=== PATIENT | female | born 1955 | race Caucasian/White ===

== ENCOUNTER → 2017-03-15 | Outpatient (CLI) | payer BC, OTHER ==
--- NOTE | 2017-03-15 16:43 | WOMENS IMAGING REPORT ---
EXAM DESCRIPTION: BILAT SCREENING MAMMO W/CAD COMPLETED DATE/TIME: 03/15/2017 8:47 am REASON FOR STUDY: SCREENING MAMMO Z12.31 ENCNTR SCREEN MAMMOGRAM FOR MALIGNANT NEOPLASM OF [place] COMPARISON: 2012 TECHNIQUE: Standard craniocaudal and mediolateral oblique views of each breast recorded using digita l acquisition. LIMITATIONS: None. FINDINGS: No masses, calcifications or architectural distortion. No areas of suspicion. Read with the assistance of CAD. .[facility] - R2 Cenova Version 1.3 .[facility] - R2 Cenova Version 1.3 .[facility] - R2 Cenova Version 2.4 .[facility] - R2 Cenova Version 2.4 .[facility] - R2 [employer] Version 9.2 IMPRESSION: NORMAL MAMMOGRAM. BIRADS 1. BREAST DENSITY: b. There are scattered areas of fibroglandular density. BIRAD: 1 NEGATIVE RECOMMENDATION: ROUTINE SCREENING COMMENT: The patient has been notified of the results by letter per SA requirements. Additional no tification policies are in place for contacting patient with suspicious or incomplete findings. Quality ID #[id number]: The [employer] recommends an annual screening mammogram for women aged 40 years or over. This facility utilizes a reminder system to ensure that all patients receive reminder letters, and/or direct phone calls for appointments. This includes reminders for routine scr eening mammograms, diagnostic mammograms, or other Breast Imaging Interventions when appropriate. Th is patient will be placed in the appropriate reminder system. The [employer] (ACR) has developed recommendations for screening MRI of the breast s in certain patient populations, to be used in conjunction with mammography. Breast MRI surveillanc e may be appropriate for women with more than 20% lifetime risk of developing breast cancer as deter mined by genetic testing, significant family history of the disease, or history of mantle radiation f or Hodgkins Disease. ACR Practice Guidelines 2008. TECHNICAL DOCUMENTATION: FINDING NUMBER: (1) ASSESSMENT: (1) JOB ID: [id number] [employer]- All Rights Reserved
== END ==
LOC: WI 08:28
PROVIDERS: ATTEND Family Medicine
DX: Z12.31 Encounter for screening mammogram for malignant neoplasm of breast (principal)
CPT/HCPCS: 77067; G0202

== ENCOUNTER 2018-07-08 13:06 | Emergency (ER) | payer OTHER, BC ==
[2018-07-08] MEDS ORDERED: KETOROLAC TROMETHAMINE 60 MG/2 ML SDV IM ONE (14:28)
[2018-07-08] MEDS ORDERED: LIDOCAINE 5% (700 MG) TRANSDERMAL ADH..PATCH TP ONE (14:28)
[2018-07-08] MEDS ORDERED: DEXAMETHASONE 4 MG TABLET PO ONE (14:28)
--- NOTE | 2018-07-08 14:33 | ER Document Report ---
ED Neck/Back Problem - General Chief Complaint: Low Back Pain Stated Complaint: LOWER BACK PAIN Time Seen by Provider: 07/08/18 14:03 Primary Care Provider: OFELIA JARAMILLO MD [Primary Care Provider] - Follow up in 3-5 days Mode of Arrival: Ambulatory Information source: Patient Notes: 62-year-old female presents to ED for complaint of left lower back pain that goes across the back and down the legs. 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 She states she has had pain in the back before but never this bad. She is alert oriented respirations regular and unlabored speaking in full sentences. She denies any loss control of bowel or bladder, loss of control of lower extremities, saddle anesthesia, or loss of sensation to the lower extremities. She does have normal reflexes to bilateral lower extremities. TRAVEL OUTSIDE OF THE [place] IN LAST 30 DAYS: No - HPI Onset: Other - She has chronic mild back pain but this is different than normal Onset: Chronic Timing: Still present - Mild but this is worse than normal Quality of pain: Sharp Severity: Moderate Pain Level: 3 Context: Bending Recent injury: Possibly Associated symptoms: Like prior neck/back pain - Worse than normal, Radiation to leg, Lower back pain. denies: Constipation, Fever, Incontinence, Motor loss, Numbness/tingling, Radiation to arm, Radiation to chest, Sensory loss, Sweaty, Unable to urinate, Upper back pain Exacerbated by: Movement of trunk, Sitting position Relieved by: Nothing Similar symptoms previously: Yes - Not this bad Recently seen / treated by doctor: No - Related Data Allergies/Adverse Reactions: No Known Allergies Allergy (Verified 07/08/18 13:07) Past Medical History - General Information source: Patient - Social History Smoking Status: Never Smoker Cigarette use (# per day): No Chew tobacco use (# tins/day): No Smoking Education Provided: No Frequency of alcohol use: None Drug Abuse: None Occupation: [employer] Lives with: Family Family History: Reviewed & Not Pertinent Patient has suicidal ideation: No Patient has homicidal ideation: No - Past Medical History Cardiac Medical History: Reports: Hx Hypertension Pulmonary Medical History: Reports: None EENT Medical History: Reports: None Neurological Medical History: Reports: None Endocrine Medical History: Reports: None Renal/ Medical History: Reports: None Malignancy Medical History: Reports: None GI Medical History: Reports: None Musculoskeletal Medical History: Reports None Skin Medical History: Reports None Psychiatric Medical History: Reports: None Traumatic Medical History: Reports: None Infectious Medical History: Reports: None Past Surgical History: Reports: Hx Hysterectomy - Immunizations Immunizations up to date: Yes Hx Diphtheria, Pertussis, Tetanus Vaccination: No - not sure Review of Systems - Review of Systems Constitutional: No symptoms reported EENT: No symptoms reported Cardiovascular: No symptoms reported Respiratory: No symptoms reported Gastrointestinal: No symptoms reported Genitourinary: No symptoms reported Female Genitourinary: No symptoms reported Musculoskeletal: Back pain, Muscle pain, Muscle stiffness Skin: No symptoms reported Hematologic/Lymphatic: No symptoms reported Neurological/Psychological: No symptoms reported Physical Exam - Vital signs Vitals: Temp Pulse Resp BP Pulse Ox 99.0 F 78 16 135/74 H 99 07/08/18 13:11 07/08/18 13:11 07/08/18 13:11 07/08/18 13:11 07/08/18 13:11 Interpretation: Normal - General General appearance: Appears well, Alert - HEENT Head: Normocephalic, Atraumatic Eyes: Normal Pupils: PERRL - Respiratory Respiratory status: No respiratory distress Chest status: Nontender Breath sounds: Normal Chest palpation: Normal - Cardiovascular Rhythm: Regular Heart sounds: Normal auscultation Murmur: No - Abdominal Inspection: Normal Distension: No distension Bowel sounds: Normal Tenderness: Nontender Organomegaly: No organomegaly - Back Back: Normal, Tender, Vertebra tenderness - lumbar. No: Deformity/step-off, CVA tenderness, Scoliosis Notes: No signs or symptoms of cauda equina, no loss of sensation to lower extremities no saddle anesthesia no loss control of bowel bladder no loss control of lower extremities. - Extremities General upper extremity: Normal inspection, Nontender, Normal color, Normal ROM, Normal temperature General lower extremity: Normal inspection, Nontender, Normal color, Normal ROM, Normal temperature, Normal weight bearing. No: Roya's sign - Neurological Neuro grossly intact: Yes Cognition: Normal Orientation: AAOx4 [place] Coma Scale Eye Opening: Spontaneous Pipe Coma Scale Verbal: Oriented Pipe Coma Scale Motor: Obeys Commands [place] Coma Scale Total: 15 Speech: Normal Motor strength normal: LUE, RUE, LLE, RLE Sensory: Normal - Psychological Associated symptoms: Normal affect, Normal mood - Skin Skin Temperature: Warm Skin Moisture: Dry Skin Color: Normal Course - Re-evaluation Re-evalutation: 07/08/18 16:41 Test x-ray with patient and written report of x-ray given to patient. Patient was instructed to follow-up with primary doctor patient was given prescriptions from naproxen and Lidoderm patches. She was instructed on exercises warm packs cold packs. Patient verbalized understanding and agreement with treatment plan. After performing a Medical Screening Examination, I estimate there is LOW risk for EXPANDING OR RUPTURED ABDOMINAL AORTIC ANEURYSM, CAUDA EQUINA SYNDROME, EPIDURAL MASS LESION, or HERNIATED DISK CAUSING SEVERE SPINAL STENOSIS, thus I consider the discharge disposition reasonable. I have reevaluated this patient multiple times and no significant life threatening changes are noted. The patient and I have discussed the diagnosis and risks, and we agree with discharging home and close follow-up. We also discussed returning to the Emergency Department immediately if new or worsening symptoms occur with the understanding that symptoms and presentations can change. We have discussed the symptoms which are most concerning (e.g., saddle anesthesia, urinary or bowel incontinence or retention, changing or worsening pain) that necessitate immediate return. - Vital Signs Vital signs: Temp Pulse Resp BP Pulse Ox 97.6 F 65 14 148/95 H 97 07/08/18 15:48 07/08/18 15:48 07/08/18 15:48 07/08/18 15:48 07/08/18 15:48 - Diagnostic Test Radiology reviewed: Image reviewed, Reports reviewed Discharge - Discharge Clinical Impression: Degenerative disc disease, lumbar Low back pain Qualifiers: Chronicity: acute Back pain laterality: bilateral Sciatica presence: with sciatica Sciatica laterality: bilateral sciatica Qualified Code(s): M54.42 - Lumbago with sciatica, left side Condition: Stable Disposition: HOME, SELF-CARE Additional Instructions: LOW BACK PAIN: Three out of every four people will have an episode of disabling back pain during their lifetime. Most commonly the pain is due to straining of the muscles and ligaments in the low back. Usual treatment includes: (1) Rest on a firm surface. Avoid lying on your stomach. (2) Ice pack the painful area. After a few days, gentle heat may be used intermittently to relax the area, or ice packs can be continued. (3) Medication may be needed -- muscle relaxers and antiinflammatory medicines are commonly used. (4) As the back improves, exercises are prescribed to strengthen the back and abdominal muscles. Your doctor will advise you on the proper care for your back at each stage in your recovery. You may be better in a few days -- or healing may take several weeks. If new symptoms of a "herniated disc" (radiation of pain, numbness, or tingling down the back of the leg or weakness in the leg) occur, you should be re-examined. Further testing may be necessary. Toradol Injection You have been given an injection of ketorolac tromethamine (Toradol). This is an excellent, safe drug for pain control. It also has potent antiinflammatory action. You should have significant pain relief within about one hour. Toradol is not addicting and is non-sedating. It does not interfere with driving or work. Call or return if you develop itching, hives, shortness of breath, or rash. STEROID MEDICATION: You have been given a medicine of the cortisone/steroid class. This medication is used to control inflammation or allergy. It is usually only given for a short period of time, until the acute process subsides. There are usually no side effects from short-term use of cortisone-like medications. Some persons feel an increased sense of well-being and are not sleepy at bedtime. Long-term use of cortisone medications is best avoided, unle ss required for a severe condition. If your condition does not remit, or relapses after the course of corticosteroid medication, you should consult your physician. Stretching Exercises for the Back The physician has recommended that you begin stretching exercises for your back. These are often used even while the back is painful. However, you should notify the physician if the activities seem to increase your pain. PELVIC TILT: Lie flat on your back with knees bent. Tighten your stomach and buttock muscles so it flattens your lower back against the floor. Hold 10 seconds. Repeat 10 times, twice daily. KNEE RAISE: Lying on the back with knees bent, raise one knee to your chest, then the other. Hold both knees against the chest 10 seconds, then lower one knee at a time. Repeat 10 times, twice daily. PARTIAL TRUNK RAISE: Lie face down, arms at your sides. Keeping your waist on the floor, use your arms raise your chest up. Support yourself on your elbows for 30 seconds. Repeat twice daily, increasing the time to two minutes as you recover. ICE PACKS: Apply ice packs frequently against the painful area. Many different schedules are recommended, such as "20 minutes on, 20 minutes off" or "one hour ice, two hours rest." If you need to work, you may need to go longer between ice treatments. You should plan to have the area ice packed AT LEAST one fourth of the time. The ice should be applied over the wrap, tape, or splint, or over a layer of cloth -- not directly against the skin. Some ice bags have a built-in cloth and can be put directly on the skin. WARM PACKS: After approximately two days, apply gentle heat (such as a heating pad or hot water bottle) for about 20 to 30 minutes about every two hours -- at least four times daily. Warmth and elevation will help you make a more rapid recovery, and will ease the pain considerably. Do not use HOT heat, and never apply heat for longer than 30 minutes. The continuous heat can invisibly damage skin and muscles -- even when no burn is seen on the surface. Damaged muscles can make you MORE sore. FOLLOW-UP CARE: If you have been referred to a physician for follow-up care, call the physicians office for an appointment as you were instructed or within the next two days. If you experience worsening or a significant change in your symptoms, notify the physician immediately or return to the Emergency Department at any time for re-evaluation. Prescriptions: Lidocaine [Lidoderm 5% (700 mg) Transdermal Patch] 1 patch TP DAILY #30 adh..patch Naproxen 500 mg PO BIDP PRN #20 tablet PRN Reason: Forms: Elevated Blood Pressure, Return to Work Referrals: OFELIA JARAMILLO MD [Primary Care Provider] - Follow up in 3-5 days
--- NOTE | 2018-07-08 15:31 | RADIOLOGY REPORT (SQ) ---
EXAM DESCRIPTION: L SPINE WHOLE COMPLETED DATE/TIME: 07/08/2018 3:21 pm REASON FOR STUDY: low back pain radiating to leg COMPARISON: None. NUMBER OF VIEWS: Five views including obliques. TECHNIQUE: AP, lateral, oblique, and sacral radiographic images acquired of the lumbar spine. LIMITATIONS: None. FINDINGS: MINERALIZATION: Normal. SEGMENTATION: Normal. No transitional anatomy. ALIGNMENT: Normal. VERTEBRAE: Maintained height. No fracture or worrisome bone lesion. DISCS: Scattered osteophytes. No focal disc space narrowing. POSTERIOR ELEMENTS: Pedicles and facets are intact. No pars defect or posterior arch defects. HARDWARE: None in the spine. PARASPINAL SOFT TISSUES: Normal. PELVIS: Intact as visualized. No fractures or worrisome bone lesions. SI joints intact. OTHER: No other significant finding. IMPRESSION: Mild degenerative changes. TECHNICAL DOCUMENTATION: JOB ID: [id number] [employer]- All Rights Reserved Reading location - IP/workstation name: [email or web address]
[2018-07-08 15:51] VITALS: BP 148/95
== END 2018-07-08 16:40 | disposition home or self-care (01) ==
LOC: ER 13:06
DX: M51.16 Intervertebral disc disorders with radiculopathy, lumbar region (principal); I10 Essential (primary) hypertension
CPT/HCPCS: 99283; 96372; 72110; J1885

== ENCOUNTER → 2018-08-22 | Outpatient (CLI) | payer BC ==
--- NOTE | 2018-08-22 18:01 | RADIOLOGY REPORT (SQ) ---
EXAM DESCRIPTION: U/S THYROID/SFT TISS HD NECK COMPLETED DATE/TIME: 08/22/2018 5:54 pm REASON FOR STUDY: E04.9 NONTOXIC GOITER, UNSPECIFIED E04.9 NONTOXIC GOITER, UNSPECIFIED COMPARISON: None. TECHNIQUE: Dynamic and static ta-scale images acquired of the thyroid gland. Selected additional c olor/power Doppler images recorded. All images stored to PACS. LIMITATIONS: None. FINDINGS: RIGHT LOBE: Normal size, 4.5 cm. Homogeneous echotexture. No cystic or solid masses. LEFT LOBE: Normal size, 4.3 cm. Homogeneous echotexture. No cystic or solid masses. ISTHMUS: Normal size, 4.4 mm. Homogeneous echotexture. No cystic or solid masses. OTHER: No other significant finding. IMPRESSION: NORMAL THYROID ULTRASOUND. TECHNICAL DOCUMENTATION: JOB ID: [id number] [employer]- All Rights Reserved Reading location - IP/workstation name: [email or web address]
== END ==
LOC: RAD 16:39
PROVIDERS: ATTEND Internal Medicine Geriatric Medicine
DX: E04.9 Nontoxic goiter, unspecified (principal)
CPT/HCPCS: 76536

== ENCOUNTER → 2018-10-09 | Outpatient (CLI) | payer BC ==
--- NOTE | 2018-10-09 11:46 | WOMENS IMAGING REPORT ---
EXAM DESCRIPTION: BILAT SCREENING MAMMO W/CAD COMPLETED DATE/TIME: 10/09/2018 11:31 am REASON FOR STUDY: ROUTINE BILATERAL SCREENING;Z12.31 Z12.31 ENCNTR SCREEN MAMMOGRAM FOR MALIGNANT N EOPLASM OF [place] COMPARISON: 2012, 2016 TECHNIQUE: Standard craniocaudal and mediolateral oblique views of each breast recorded using [place] l acquisition. LIMITATIONS: None. FINDINGS: No masses, calcifications or architectural distortion. No areas of suspicion. Read with the assistance of CAD. .[facility] - R2 Mover Version 9.2 IMPRESSION: NORMAL MAMMOGRAM. BIRADS 1. BREAST DENSITY: b. There are scattered areas of fibroglandular density. BIRAD: 1 NEGATIVE RECOMMENDATION: ROUTINE SCREENING COMMENT: The patient has been notified of the results by letter per MQSA requirements. Additional no tification policies are in place for contacting patient with suspicious or incomplete findings. Quality ID #[id number]: The [employer] [employer] recommends an annual screening mammogram for women aged 40 years or over. This facility utilizes a reminder system to ensure that all patients receive reminder letters, and/or direct phone calls for appointments. This includes reminders for routine scr eening mammograms, diagnostic mammograms, or other Breast Imaging Interventions when appropriate. Th is patient will be placed in the appropriate reminder system. TECHNICAL DOCUMENTATION: FINDING NUMBER: (1) ASSESSMENT: (1) JOB ID: [id number] [employer]- All Rights Reserved Reading location - IP/workstation name: [email or web address]
== END ==
LOC: WI 11:09
PROVIDERS: ATTEND Internal Medicine Geriatric Medicine
DX: Z12.31 Encounter for screening mammogram for malignant neoplasm of breast (principal)
CPT/HCPCS: 77067

== ENCOUNTER 2019-05-26 09:15 | Emergency (ER) | payer OTHER, BC ==
[2019-05-26] MEDS ORDERED: LIDOCAINE 5% (700 MG) TRANSDERMAL ADH..PATCH TP ONE (11:16)
[2019-05-26] MEDS ORDERED: ACETAMINOPHEN 325 MG TABLET PO ONE (11:16)
--- NOTE | 2019-05-26 11:23 | ER Document Report ---
HPI - HPI Patient complains to provider of: Back pain Time Seen by Provider: 05/26/19 11:01 Onset: This morning Onset/Duration: Gradual Quality of pain: Achy Pain Level: 5 Context: Patient states she has a history of chronic neck and low back pain. Patient had been out of work for a year due to arthritis and chronic back pain. Patient recently started back to work yesterday. Patient is not supposed to lift more than 10 or 20 pounds. Patient states that a patient was unable to stand up unassisted and patient attempted to help patient ambulate. Patient states that she ended up lifting probably closer to 50 pounds. Patient states she did not have pain at that time although when she woke up this morning she developed pain to the upper back and low back area. Patient states that she has had pain like this in the past. Patient denies any fever. Patient denies any urinary retention or incontinence. Patient also complains of sore throat symptoms. Associated Symptoms: Other - Upper and lower back pain. denies: Fever, Headache, Nausea, Vomiting Exacerbated by: Movement Relieved by: Denies Similar symptoms previously: Yes Recently seen / treated by doctor: No - ROS ROS below otherwise negative: Yes Systems Reviewed and Negative: Yes All other systems reviewed and negative - EENT EENT: REPORTS: Sore Throat - GASTROINTESTINAL Gastrointestinal: DENIES: Nausea, Patient vomiting - REPRODUCTIVE Reproductive: DENIES: : - MUSCULOSKELETAL Musculoskeletal: REPORTS: Back Pain, Neck Pain - Lateral neck pain. 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 Family History: Reviewed & Not Pertinent Patient has suicidal ideation: No Patient has homicidal ideation: No - Past Medical History Cardiac Medical History: Reports: Hx Hypertension Renal/ Medical History: Denies: Hx Peritoneal Dialysis Past Surgical History: Reports: Hx Hysterectomy, Hx Orthopedic Surgery - Immunizations Immunizations up to date: Yes Hx Diphtheria, Pertussis, Tetanus Vaccination: No - not sure Vertical Provider Document - CONSTITUTIONAL Agree With Documented VS: Yes Exam Limitations: No Limitations General Appearance: WD/WN, No Apparent Distress - INFECTION CONTROL TRAVEL OUTSIDE OF THE [place] IN LAST 30 DAYS: No - HEENT HEENT: Atraumatic, Normocephalic - NECK Neck: Supple. negative: Lymphadenopathy-Left, Lymphadenopathy-Right Notes: Posterior cervical paraspinal tenderness, no meningismus - RESPIRATORY Respiratory: Breath Sounds Normal, No Respiratory Distress, Chest Non-Tender. negative: Rales, Rhonchi, Wheezing - CARDIOVASCULAR Cardiovascular: Regular Rate, Regular Rhythm Pulses: Normal: Radial - BACK Back: Abnormal Inspection - Lumbar paraspinal tenderness. negative: CVA Tender ness-Right, CVA Tenderness-Left - MUSCULOSKELETAL/EXTREMETIES Musculoskeletal/Extremeties: DOROTEO HORVATH - NEURO Level of Consciousness: Awake, Alert, Appropriate Motor/Sensory: No Motor Deficit, No Sensory Deficit Notes: No saddle anesthesia, normal gait, no foot drop - DERM Integumentary: Warm, Dry, No Rash Course - Re-evaluation Re-evalutation: 05/26/19 12:32 Patient's rapid strep test negative at this time. Will treat symptomatically for her tension headache symptoms and trapezius muscle tenderness. Patient also with chronic low back pain flareup. The patient presents with low back pain without signs of spinal cord compression, cauda equina syndrome, infection, aneurysm, or other serious etiology. The patient is neurologically intact. Given the extremely risk of these diagnoses further testing and evaluation for these possibilities does not appear to be indicated at this time. Patient has been instructed to return if the symptoms worsen or change in any way. - Vital Signs Vital signs: Temp Pulse Resp BP Pulse Ox 98.4 F 72 16 140/81 H 99 05/26/19 09:28 05/26/19 09:19 05/26/19 09:28 05/26/19 09:19 05/26/19 09:28 - Laboratory Laboratory results interpreted by me: 05/26/19 12:32 Labs- Entire Visit 05/26/19 11:21 Group A Strep Rapid NEGATIVE Discharge - Discharge Clinical Impression: Tension headache Low back pain Qualifiers: Chronicity: unspecified Back pain laterality: bilateral Sciatica presence: without sciatica Qualified Code(s): M54.5 - Low back pain Trapezius muscle strain Qualifiers: Encounter type: initial encounter Laterality: unspecified laterality Qualified Code(s): S46.819A - Strain of other muscles, fascia and tendons at shoulder and upper arm level, unspecified arm, initial encounter Condition: Stable Disposition: HOME, SELF-CARE Instructions: Ice Packs ([facility]), Low Back Pain ([facility]), Muscle Relaxers ([facility]), Muscle Strain ([facility]), Tension Headache ([facility]), Warm Packs ([facility]) Additional Instructions: Return immediately for any new or worsening symptoms Followup with your primary care provider, call tomorrow to make a followup appointment No heavy lifting Prescriptions: Butalb/Acetaminophen/Caffeine [Fioricet (50-325-40 mg) Tablet] 1 - 2 tab PO Q4H PRN #12 each PRN Reason: Cyclobenzaprine HCl [Flexeril 10 Mg Tablet] 10 mg PO TID #15 tablet Lidocaine [Lidoderm 5% (700 mg) Transdermal Patch] 1 patch TP DAILY PRN #10 adh..patch PRN Reason: Forms: Return to Work Referrals: VENESSA REGALADO MD [Primary Care Provider] - Follow up in 3-5 days
[2019-05-26 12:47] VITALS: BP 138/78
== END 2019-05-26 12:45 | disposition home or self-care (01) ==
LOC: ER 09:15
DX: G44.209 Tension-type headache, unspecified, not intractable (principal); S46.819A Strain of other muscles, fascia and tendons at shoulder and upper arm level, unspecified arm, initial encounter; X58.XXXA Exposure to other specified factors, initial encounter; Y99.0 Civilian activity done for income or pay; G89.29 Other chronic pain; M54.5 Low back pain; M54.2 Cervicalgia
CPT/HCPCS: 87070; 87880; 99283

== ENCOUNTER 2019-05-27 09:18 | Emergency (ER) | payer BC, OTHER ==
[2019-05-27 09:29] VITALS: BP 146/92
[2019-05-27] MEDS ORDERED: ALBUTEROL SULFATE HFA (90 MCG/PUFF) 8 GM MDI (1 MDI/ER DISP) IH ONE (10:12)
--- NOTE | 2019-05-27 10:19 | ER Document Report ---
HPI - HPI Time Seen by Provider: 05/27/19 10:01 Pain Level: Denies Context: 63-year-old female with hypertension presents to the emergency department with chief complaint of persistent sore throat and cold-like symptoms. Patient was seen here yesterday for back pain and a sore throat and had a negative rapid strep. Patient states that her symptoms have been persistent, she has cough, denies fever, complains of runny nose, and denies any ear pain. - EENT EENT: REPORTS: Sore Throat - RESPIRATORY Respiratory: REPORTS: Coughing - REPRODUCTIVE Reproductive: DENIES: : Past Medical History - Social History Smoking Status: Never Smoker Chew tobacco use (# tins/day): No Frequency of alcohol use: None Drug Abuse: None Family History: Reviewed & Not Pertinent Patient has suicidal ideation: No Patient has homicidal ideation: No - Past Medical History Cardiac Medical History: Reports: Hx Hypertension Renal/ Medical History: Denies: Hx Peritoneal Dialysis Past Surgical History: Reports: Hx Hysterectomy, Hx Orthopedic Surgery - Immunizations Immunizations up to date: Yes Hx Diphtheria, Pertussis, Tetanus Vaccination: No - not sure Vertical Provider Document - CONSTITUTIONAL Notes: PHYSICAL EXAMINATION: Reviewed vital signs and charting by RN GENERAL: Alert, interacts well. No acute distress. HEAD: Normocephalic, atraumatic. EYES: Pupils equal and round. Extraocular movements intact. ENT: Oral mucosa moist, tongue midline. NECK: Full range of motion. Trachea midline. LUNGS: End expiratory wheezing in all meadows HEART: Regular rate and rhythm. No murmur ABDOMEN: soft, non-tender. No distention. Bowel sounds present EXTREMITIES: Moves all 4 extremities spontaneously. No edema, No cyanosis. PSYCH: Normal affect, normal mood. SKIN: Warm, dry, normal turgor. No rashes or lesions noted. - INFECTION CONTROL TRAVEL OUTSIDE OF THE [place] IN LAST 30 DAYS: No Course - Re-evaluation Re-evalutation: 05/27/19 10:19 Well-appearing in no acute distress. I did hear end expiratory wheezing and I am going to give patient an albuterol inhaler. Patient does have fluticasone intranasal at home and I instructed her to do 2 puffs each nostril daily. Presentation is most consistent with a viral upper respiratory infection. Patient is overall well appearance, vitals within normal limits, well-hydrated. Patient denies any headache, neck pain, and has no evidence of meningismus on examination. Lungs are clear bilaterally. No evidence of respiratory distress. Based on clinical exam and history, I do not suspect an acute pneumonia, meningitis, strep pharyngitis, or an acute encephalitis. No laboratory or imaging testing is indicated at this time. Will discharge patient with return precautions and followup recommendations. They are in agreement this plan have verbalized understanding return precautions. - Vital Signs Vital signs: Temp Pulse Resp BP Pulse Ox 99.3 F 80 16 146/92 H 96 05/27/19 09:55 05/27/19 09:28 05/27/19 09:55 05/27/19 09:28 05/27/19 09:55 Discharge - Discharge Clinical Impression: Viral upper respiratory infection, Cough, Wheezing, Sore throat Condition: Good Disposition: HOME, SELF-CARE Additional Instructions: You were seen in the emergency department today for a viral upper respiratory infection. I also heard some end expiratory wheezing when listening to your lungs. I have given you an albuterol inhaler and a prescription for a spacer. Place the inhaler on the end of the spacer then placed the spacer to your mouth, start gently breathing and slowly and as you are breathing and take 2 puffs of the albuterol inhaler. Continue to take a full breath and then hold it for at least 10 seconds and gently exhale. For your runny nose you can get saline nasal spray and place 2 squirts in each nose and then gently blow your nose for relief. Also, I have given you a prescription for something called Nasonex which is a gentle steroid that can help as well. 1-2 squirts in each nostril daily. If you buy any [id number] cough and cold medicines please avoid Sudafed and also anything that has dextromethorphan as an ingredient as it can increase your blood pressure. Please return to the emergency department if your symptoms do not improve in the next 7 to 10 days, you develop high fever and acute weakness, you pass out, you have intractable nausea or vomiting, profuse diarrhea, or any other concerning symptoms. Prescriptions: Inhaler, Assist Devices [Aerochamber Mini] 1 each MC ASDIR PRN #1 spacer PRN Reason: Referrals: VENESSA REGALADO MD [Primary Care Provider] - Follow up as needed
== END 2019-05-27 10:21 | disposition home or self-care (01) ==
LOC: ER 09:18
DX: J06.9 Acute upper respiratory infection, unspecified (principal); B97.89 Other viral agents as the cause of diseases classified elsewhere; J02.9 Acute pharyngitis, unspecified; R05 Cough; I10 Essential (primary) hypertension; R06.2 Wheezing
CPT/HCPCS: 99282; J3490

== ENCOUNTER 2019-08-28 03:45 | Emergency (ER) | payer OTHER, BC ==
[2019-08-28] MEDS ORDERED: PREDNISONE 20 MG TABLET PO ONE (04:11)
[2019-08-28] MEDS ORDERED: NAPROXEN 250 MG TABLET PO ONE (04:12)
--- NOTE | 2019-08-28 04:14 | ER Document Report ---
ED Hand/Wrist Injury - General Chief Complaint: Wrist Pain Stated Complaint: RIGHT ARM INJURY Time Seen by Provider: 08/28/19 04:02 Primary Care Provider: VENESSA REGALADO MD [Primary Care Provider] - Follow up as needed Mode of Arrival: Ambulatory Information source: Patient Notes: 63-year-old woman presents to the emergency department with a history of injury to her right wrist and forearm while pulling tiles from a washing machine tonight. States that she became excited when the washing machine began to shake and rapidly pulled a wet towels from the machine. Later she developed a throbbing pain in the right forearm/wrist and denies other injury. She had taken a Tylenol for pain earlier. She denies diabetes mellitus, allergies to medications or direct trauma. TRAVEL OUTSIDE OF THE [place] IN LAST 30 DAYS: No - Related Data Allergies/Adverse Reactions: No Known Allergies Allergy (Verified 05/27/19 09:55) Past Medical History - General Information source: Patient - Social History Smoking Status: Unknown if Ever Smoked Family History: Reviewed & Not Pertinent - Past Medical History Cardiac Medical History: Reports: Hx Hypertension Renal/ Medical History: Denies: Hx Peritoneal Dialysis Past Surgical History: Reports: Hx Hysterectomy, Hx Orthopedic Surgery - Immunizations Immunizations up to date: Yes Hx Diphtheria, Pertussis, Tetanus Vaccination: No - not sure Review of Systems - Review of Systems Notes: Constitutional: Negative for fever. HENT: Negative for sore throat. Eyes: Negative for visual changes. Cardiovascular: Negative for chest pain. Respiratory: Negative for shortness of breath. Gastrointestinal: Negative for abdominal pain, vomiting or diarrhea. Genitourinary: Negative for dysuria. Musculoskeletal: + Right wrist swelling and tenderness, Skin: Negative for rash. Neurological: Negative for headaches, weakness or numbness. 10 point ROS negative except as marked above and in HPI. Physical Exam - Vital signs Vitals: Temp Pulse Resp BP Pulse Ox 98.5 F 73 20 159/80 H 93 08/28/19 04:00 08/28/19 04:00 08/28/19 04:00 08/28/19 04:00 08/28/19 04:00 - Notes Notes: PHYSICAL EXAMINATION: Physical Exam: General: Well-nourished well-developed 63-year-old woman in no acute distress HEENT: NC/AT, pupils equal round and reactive to light, MM moist,nares clear, oropharynx clear, airway patent Neck: supple, no adenopathy, no masses. Good range of motion Lungs: clear, no wheezing, no rales no rhonchi CVS: Regular rate and rhythm no murmur gallop or rub Abdomen: Soft, active, nontender, no masses, no hepatosplenomegaly Ext: Tenderness in the right lateral forearm dorsal aspect greater than volar, no obvious deformity, neurovascular intact. Patient moves her fingers without difficulty. Neuro: Alert and responsive, moving all 4 extremities on command, cranial nerves intact, no focal findings Skin: Intact no open lesions, no rash PSYCH: Normal mood, normal affect. Course - Re-evaluation Re-evalutation: 08/28/19 04:16 Patient is given a dose of prednisone and Naprosyn, x-ray of the wrist is performed, x-ray essentially normal, a cock-up splint is applied to the right wrist and I have explained to the patient that she has a sprain which will improve with anti-inflammatory medications and cold application 08/28/19 04:51 X-ray right wrist, no bony abnormalities noted, discussed the plan with the patient and she is in agreement with cock-up splint and anti-inflammatory medications. She will follow-up with her primary physician as needed. - Vital Signs Vital signs: Temp Pulse Resp BP Pulse Ox 98.6 F 70 18 140/82 H 96 08/28/19 05:13 08/28/19 05:13 08/28/19 05:13 08/28/19 05:13 08/28/19 05:13 - Diagnostic Test Radiology reviewed: Image reviewed, Reports reviewed - X-ray right wrist: No fracture, no acute bony changes. Procedures - Immobilization Right Wrist Time completed: 04:55 Pre-Proc Neuro Vasc Exam: Normal Immobilizer type: Cock-up Performed by: RN, Other Post-Proc Neuro Vasc Exam: Normal Alignment checked and good: Yes - Wrist splint adequately placed. Discharge - Discharge Clinical Impression: Sprain of wrist, right Qualifiers: Encounter type: initial encounter Qualified Code(s): S63.501A - Unspecified sprain of right wrist, initial encounter Condition: Good Disposition: HOME, SELF-CARE Instructions: Wrist Sprain ([facility]) Additional Instructions: You are diagnosed with a sprain of the right wrist in the emergency department tonight. Please wear the splint for comfort, take Naprosyn as prescribed, cold compresses to the area of pain. Please follow-up with your doctor as needed. You may return to the emergency department if your symptoms are worsening or if you have other concerns. HOME CARE INSTRUCTIONS & INFORMATION: Thank you for choosing us for your medical needs. We hope you're satisfied with the care you received. After you leave, you must properly care for your problem and, at the same time, observe its progress. Any condition can change. Some illnesses can change rapidly over hours or days. If your condition worsens, return to the Emergency Department or see your physician promptly. ABOUT YOUR X-RAYS AND EKG'S: If you had an EKG or X-rays taken, they have been read by the Emergency Physician. The X-rays and EKG's will also be read by a Radiologist or [facility]er within 24 hours. If discrepancies are noted, you will be notified by telephone. Please be certain the ED has a correct telephone number & address where you can be reached. Also, realize that some fractures or abnormalities do not show up on initial X-rays. If your symptoms continue, see your physician. ABOUT YOUR LABORATORY TEST: If you had laboratory tests, the results have been reviewed by the Emergency Physician. Some test results (for example cultures) may not be available for several days. You will be contacted if any test result shows you need additional treatment. Please be certain the ED has a correct telephone number and address where you can be reached. ABOUT YOUR MEDICATIONS: You will receive instructions on how to take your medicine on the prescription label you receive. Additional information may be provided by the Pharmacy. If you have questions afterwards, call the ED for clarification or further instructions. Some prescribed medications may cause drowsiness. Do not perform tasks such as driving a car or operating machinery without consulting your Pharmacist. If you feel you need a refill of pain medication, your condition will need re-evaluation. Please do not call for a refill of any medication. ABOUT YOUR SIGNATURE: Signature of this document acknowledges to followin. Understanding that you received emergency treatment and that you may be released before al medical problems are known or treated. Please be certain the ED has a correct phone number & address where you can be reached. 2. Acknowledgement that you will arrange for follow-up care as recommended. 3. Authorization for the Emergency Physician to provide information to your follow-up Physician in order to maximize your care. AT ANY TIME, IF YOUR SYMPTOMS CHANGE SIGNIFICANTLY OR WORSEN OR YOU DEVELOP NEW SYMPTOMS, RETURN TO THE EMERGENCY DEPARTMENT IMMEDIATELY FOR RE-EVALUATION. OUR GOAL IS TO PROVIDE EXCELLENT MEDICAL CARE! WE HOPE THAT WE HAVE MET YOUR EXPECTATIONS DURING YOUR EMERGENCY DEPARTMENT VISIT AND THAT YOU FEEL YOU HAVE RECEIVED EXCELLENT CARE! Prescriptions: Naproxen [Naprosyn] 500 mg PO BID #20 tablet Referrals: VENESSA REGALADO MD [Primary Care Provider] - Follow up as needed
--- NOTE | 2019-08-28 04:57 | RADIOLOGY REPORT (SQ) ---
EXAM DESCRIPTION: XR WRIST 3 OR MORE VIEWS COMPLETED DATE/TME: 08/28/2019 04:06 CLINICAL HISTORY: 63 years, Female, Injury, pain COMPARISON: None. NUMBER OF VIEWS: Three TECHNIQUE: Views of the right wrist LIMITATIONS: None. FINDINGS: There is no acute fracture or dislocation. No large soft tissue swelling. No radiopaque foreign body. IMPRESSION: No acute fracture or dislocation copyright 2010 [employer]- All Rights Reserved
[2019-08-28 05:15] VITALS: BP 140/82
== END 2019-08-28 05:13 | disposition home or self-care (01) ==
LOC: ER 03:45
PROC: 2W3CX1Z Immobilization of Right Lower Arm using Splint (ICD-10-PCS; principal; 2019-08-28)
DX: S63.501A Unspecified sprain of right wrist, initial encounter (principal); M25.531 Pain in right wrist; M79.89 Other specified soft tissue disorders; X50.3XXA Overexertion from repetitive movements, initial encounter; I10 Essential (primary) hypertension
CPT/HCPCS: 99283; 73110; 29125; J7512

== ENCOUNTER 2019-08-31 03:39 | Emergency (ER) | payer OTHER, BC ==
[2019-08-31] MEDS ORDERED: HYDROCODONE/ACETAMINOPHEN 5-325 MG (6 TAB/ER DISP) PO PRN (05:03)
[2019-08-31 05:29] VITALS: BP 180/88
--- NOTE | 2019-08-31 20:17 | ER Document Report ---
Entered by LETTY CASAS SCRIBE 08/31/19 0452 Acting as scribe for:RUPESH WINSTON IV, MD ED Hand/Wrist Injury - General Chief Complaint: Hand Pain Stated Complaint: RIGHT HAND PAIN Time Seen by Provider: 08/31/19 04:50 Primary Care Provider: VENESSA REGALADO MD [Primary Care Provider] - Follow up as needed Mode of Arrival: Ambulatory Information source: Patient Notes: This 63 year old female patient presents to the ED today with complaints of left forearm and wrist pain that woke her up this morning. Patient states that she was pulling out "heavyweight" towels from a dryer and hurt both of her wrists x3 days ago. Patient was seen here on the date of the incident and was diagnosed with a right wrist sprain and prescribed Naproxen. Patient reports that her left wrist started bothering her this morning and that she took a Naproxen around 0100 without relief. Patient noted to have an Rafael wrap to her left hand. TRAVEL OUTSIDE OF THE [place] IN LAST 30 DAYS: No - Related Data Allergies/Adverse Reactions: No Known Allergies Allergy (Verified 05/27/19 09:55) Past Medical History - General Information source: Patient, [facility] Records - Social History Smoking Status: Unknown if Ever Smoked Cigarette use (# per day): No Chew tobacco use (# tins/day): No Smoking Education Provided: No Family History: Reviewed & Not Pertinent Patient has suicidal ideation: No Patient has homicidal ideation: No - Past Medical History Cardiac Medical History: Reports: Hx Hypertension Past Surgical History: Reports: Hx Hysterectomy, Hx Orthopedic Surgery - Immunizations Immunizations up to date: Yes Hx Diphtheria, Pertussis, Tetanus Vaccination: No - not sure Review of Systems - Review of Systems Constitutional: No symptoms reported EENT: No symptoms reported Cardiovascular: No symptoms reported Respiratory: No symptoms reported Gastrointestinal: No symptoms reported Genitourinary: No symptoms reported Female Genitourinary: No symptoms reported Musculoskeletal: See HPI, Other - Left forearm/wrist pain Skin: No symptoms reported Hematologic/Lymphatic: No symptoms reported Neurological/Psychological: No symptoms reported -: Yes All other systems reviewed and negative Physical Exam - Vital signs Vitals: Temp Pulse Resp BP Pulse Ox 98.7 F 68 22 H 186/95 H 96 08/31/19 04:01 08/31/19 04:01 08/31/19 04:01 08/31/19 04:01 08/31/19 04:01 - General General appearance: Alert - HEENT Head: Normocephalic, Atraumatic Eyes: Normal Pupils: PERRL - Respiratory Respiratory status: No respiratory distress Chest status: Nontender Breath sounds: Normal Chest palpation: Normal - Cardiovascular Rhythm: Regular Heart sounds: Normal auscultation Murmur: No Friction rub: No Gallop: None auscultated - Abdominal Inspection: Normal Distension: No distension Bowel sounds: Normal Tenderness: Nontender - Abdomen soft Organomegaly: No organomegaly - Back Back: Normal, Nontender - Extremities General upper extremity: Other - Intact active ROM. No deformity, step-off, or crepitus. General lower extremity: Normal inspection Forearm: Tender - Tender to palpate left distal forearm. No: Deformity Wrist: Tender - Tender to palpate left wrist, Other - Radial pulses 2+ bilaterally.. No: Deformity Hand: Other - Diminished ROM in fingers of left hand secondary to pain - Neurological Neuro grossly intact: Yes - Psychological Associated symptoms: Normal affect, Normal mood - Skin Skin Temperature: Warm Skin Moisture: Dry Skin Color: Normal Course - Re-evaluation Re-evalutation: 08/31/19 05:04 Results of ED MSE discussed with patient. All questions were answered prior to discharge. Emergency signs and symptoms, reasons to return to the emergency department discussed with patient. - Vital Signs Vital signs: Temp Pulse Resp BP Pulse Ox 98.1 F 63 16 180/88 H 97 08/31/19 05:28 08/31/19 05:28 08/31/19 05:28 08/31/19 05:28 08/31/19 05:28 Discharge - Discharge Clinical Impression: Left wrist sprain Qualifiers: Encounter type: initial encounter Qualified Code(s): S63.502A - Unspecified sprain of left wrist, initial encounter Condition: Good Disposition: HOME, SELF-CARE Additional Instructions: Return to the Emergency Department without delay if any worse. Sprain Your injury is a sprain. A sprain results from stretching or tearing of the ligaments, usually from a twisting injury. The ligaments will require time and protection in order to heal properly. Many sprains are quite disabling and should be taken seriously. The usual initial treatment of sprains is cold packs, elevation, and rest of the injured area. Your physician has assessed the seriousness of your ligament injury, and has outlined a treatment plan. Understand that this treatment may change, depending on how you progress. If a re-examination was recommended, it is important that you follow up as instructed. Call the doctor any time if there is severe pain, numbness, or loss of function in the injured area. HOME CARE INSTRUCTIONS & INFORMATION: Thank you for choosing us for your medical needs. We hope you're satisfied with the care you received. After you leave, you must properly care for your problem and, at the same time, observe its progress. Any condition can change. Some illnesses can change rapidly over hours or days. If your condition worsens, return to the Emergency Department or see your physician promptly. ABOUT YOUR X-RAYS AND EKG'S: If you had an EKG or X-rays taken, they have been read by the Emergency Physician. The X-rays and EKG's will also be read by a Radiologist or Electronics Specialist within 24 hours. If discrepancies are noted, you will be notified by telephone. Please be certain the ED has a correct telephone number & address where you can be reached. Also, realize that some fractures or abnormalities do not show up on initial X-rays. If your symptoms continue, see your physician. ABOUT YOUR LABORATORY TEST: If you had laboratory tests, the results have been reviewed by the Emergency Physician. Some test results (for example cultures) may not be available for several days. You will be contacted if any test result shows you need additional treatment. Please be certain the ED has a correct telephone number and address where you can be reached. ABOUT YOUR MEDICATIONS: You will receive instructions on how to take your medicine on the prescription label you receive. Additional information may be provided by the Pharmacy. If you have questions afterwards, call the ED for clarification or further instructions. Some prescribed medications may cause drowsiness. Do not perform tasks such as driving a car or operating machinery without consulting your Pharmacist. If you feel you need a refill of pain medication, your condition will need re-evaluation. Please do not call for a refill of any medication. ABOUT YOUR SIGNATURE: Signature of this document acknowledges to followin. Understanding that you received emergency treatment and that you may be released before al medical problems are known or treated. Please be certain the ED has a correct phone number & address where you can be reached. 2. Acknowledgement that you will arrange for follow-up care as recommended. 3. Authorization for the Emergency Physician to provide information to your follow-up Physician in order to maximize your care. AT ANY TIME, IF YOUR SYMPTOMS CHANGE SIGNIFICANTLY OR WORSEN OR YOU DEVELOP NEW SYMPTOMS, RETURN TO THE EMERGENCY DEPARTMENT IMMEDIATELY FOR RE-EVALUATION. OUR GOAL IS TO PROVIDE EXCELLENT MEDICAL CARE! WE HOPE THAT WE HAVE MET YOUR EXPECTATIONS DURING YOUR EMERGENCY DEPARTMENT VISIT AND THAT YOU FEEL YOU HAVE RECEIVED EXCELLENT CARE! Prescriptions: Hydrocodone/Acetaminophen [[place] 5-325 mg Tablet] 1 tab PO Q6HP PRN #15 tablet PRN Reason: pain Referrals: VENESSA REGALADO MD [Primary Care Provider] - Follow up as needed I personally performed the services described in the documentation, reviewed and edited the documentation which was dictated to the scribe in my presence, and it accurately records my words and actions.
== END 2019-08-31 05:28 | disposition home or self-care (01) ==
LOC: ER 03:39
DX: S63.502A Unspecified sprain of left wrist, initial encounter (principal); M79.641 Pain in right hand; X58.XXXA Exposure to other specified factors, initial encounter; Y93.E2 Activity, laundry; Y92.009 Unspecified place in unspecified non-institutional (private) residence as the place of occurrence of the external cause; I10 Essential (primary) hypertension; Z90.710 Acquired absence of both cervix and uterus
CPT/HCPCS: 99283

== ENCOUNTER → 2020-03-29 | Outpatient (CLI) | payer OTHER, BC ==
--- NOTE | 2020-03-29 14:44 | RADIOLOGY REPORT (SQ) ---
EXAM DESCRIPTION: WRIST RIGHT 2 VIEWS IMAGES COMPLETED DATE/TIME: 03/29/2020 1:21 pm REASON FOR STUDY: RIGHT WRIST PAIN S63.501A UNSPECIFIED SPRAIN OF RIGHT WRIST, INITIAL ENCOUNTE COMPARISON: None. NUMBER OF VIEWS: Two views. TECHNIQUE: AP and lateral radiographic images acquired of the right wrist. LIMITATIONS: None. FINDINGS: MINERALIZATION: Osteopenia. BONES: No acute fracture or dislocation. No worrisome bone lesions. Normal alignment. SOFT TISSUES: No soft tissue swelling. No foreign body. OTHER: No other significant finding. IMPRESSION: NEGATIVE STUDY OF THE RIGHT WRIST. NO RADIOGRAPHIC EVIDENCE OF ACUTE INJURY. TECHNICAL DOCUMENTATION: JOB ID: [id number] 2010 [employer]- All Rights Reserved Reading location - IP/workstation name: [email or web address]
== END ==
LOC: RAD 12:58
PROVIDERS: ATTEND Nurse Practitioner
DX: S63.501A Unspecified sprain of right wrist, initial encounter (principal); X58.XXXA Exposure to other specified factors, initial encounter; Y93.9 Activity, unspecified; Y92.9 Unspecified place or not applicable

== ENCOUNTER 2020-04-19 07:37 | Emergency (ER) | payer OTHER, BC ==
--- NOTE | 2020-04-19 08:59 | RADIOLOGY REPORT (SQ) ---
EXAM DESCRIPTION: SHOULDER LEFT 2 OR MORE VIEWS IMAGES COMPLETED DATE/TIME: 04/19/2020 8:19 am REASON FOR STUDY: left shoulder injury COMPARISON: Left shoulder films 09/04/2008 NUMBER OF VIEWS: Three views. TECHNIQUE: Internal rotation, external rotation, and Y view images acquired of the left shoulder. LIMITATIONS: None. FINDINGS: MINERALIZATION: Normal. BONES: No acute fracture. No worrisome bone lesions. JOINTS: No dislocation. VISUALIZED LUNGS AND RIBS: No pneumothorax. No rib fracture. SOFT TISSUES: No radiopaque foreign body. OTHER: No other significant finding. IMPRESSION: NEGATIVE STUDY OF THE LEFT SHOULDER. NO RADIOGRAPHIC EVIDENCE OF ACUTE INJURY. TECHNICAL DOCUMENTATION: JOB ID: [id number] 2010 [employer]- All Rights Reserved Reading location - IP/workstation name: [email or web address]
--- NOTE | 2020-04-19 10:17 | ER Document Report ---
Entered by LETTY CASAS SCRIBE 04/19/20 1010 Acting as scribe for:MIKO BISWAS MD ED Extremity Problem, Upper - General Chief Complaint: Shoulder Injury Stated Complaint: SHOULDER PAIN Primary Care Provider: VENESSA REGALADO MD [Primary Care Provider] - Follow up as needed Mode of Arrival: Ambulatory Information source: Patient Notes: This 64 year old female patient presents to the ED today with complaints of left shoulder injury that occurred yesterday at work. 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 Patient states that the pain became worse this morning. She mentions taking OTC Ibuprofen and applying ice packs for the pain. Denies fall, difficulty, breathing, or pain to any other areas. TRAVEL OUTSIDE OF THE [place] IN LAST 30 DAYS: No - Related Data Allergies/Adverse Reactions: No Known Allergies Allergy (Verified 05/27/19 09:55) Home Medications: HCTZ Past Medical History - General Information source: Patient, [facility] Records - Social History Smoking Status: Never Smoker Cigarette use (# per day): No Chew tobacco use (# tins/day): No Smoking Education Provided: No Frequency of alcohol use: None Drug Abuse: None Family History: Reviewed & Not Pertinent Patient has suicidal ideation: No Patient has homicidal ideation: No - Past Medical History Cardiac Medical History: Reports: Hx Hypertension Past Surgical History: Reports: Hx Hysterectomy, Hx Orthopedic Surgery - Immunizations Immunizations up to date: Yes Hx Diphtheria, Pertussis, Tetanus Vaccination: No - not sure Review of Systems - Review of Systems Constitutional: No symptoms reported EENT: No symptoms reported Cardiovascular: See HPI. denies: Dyspnea Respiratory: No symptoms reported Gastrointestinal: No symptoms reported Genitourinary: No symptoms reported Female Genitourinary: No symptoms reported Musculoskeletal: See HPI, Joint pain Skin: No symptoms reported Hematologic/Lymphatic: No symptoms reported Neurological/Psychological: No symptoms reported -: Yes All other systems reviewed and negative Physical Exam - Vital signs Vitals: Temp Pulse Resp BP Pulse Ox 98.4 F 73 18 167/89 H 97 04/19/20 07:41 04/19/20 07:41 04/19/20 07:41 04/19/20 07:41 04/19/20 07:41 Interpretation: Normal - General General appearance: Alert In distress: None - HEENT Head: Normocephalic, Atraumatic Eyes: Normal Pupils: PERRL - Respiratory Respiratory status: No respiratory distress Chest status: Nontender Breath sounds: Normal Chest palpation: Normal - Cardiovascular Rhythm: Regular Heart sounds: Normal auscultation Murmur: No Friction rub: No Gallop: None auscultated - Abdominal Inspection: Normal Distension: No distension Bowel sounds: Normal Tenderness: Nontender - Abdomen soft Organomegaly: No organomegaly - Back Back: Normal, Nontender - Extremities General lower extremity: Normal inspection. No: Edema Shoulder: Tender - Tenderness to palpation of left anterior and posterior shoulder. No: Deformity - or crepitus, Ecchymosis, Limited ROM - Neurological Neuro grossly intact: Yes Cognition: Normal Orientation: AAOx4 [place] Coma Scale Eye Opening: Spontaneous Pipe Coma Scale Verbal: Oriented Pipe Coma Scale Motor: Obeys Commands [place] Coma Scale Total: 15 Speech: Normal Motor strength normal: LUE, RUE, LLE, RLE Sensory: Normal - Psychological Associated symptoms: Normal affect, Normal mood - Skin Skin Temperature: Warm Skin Moisture: Dry Skin Color: Normal Course - Re-evaluation Re-evalutation: 04/19/20 10:14 Patient resting in bed not showing significant signs of discomfort. Patient has ice pack on her left shoulder area. Patient does have full range of motion without crepitus or any deformity noted. - Vital Signs Vital signs: Temp Pulse Resp BP Pulse Ox 98.4 F 73 18 167/89 H 97 04/19/20 07:41 04/19/20 07:41 04/19/20 07:41 04/19/20 07:41 04/19/20 07:41 04/19/20 10:14 Vital signs stable - Diagnostic Test Radiology reviewed: Image reviewed, Reports reviewed Radiology results interpreted by me: 04/19/20 10:10 Shoulder X-Ray 04/19/20 07:56 IMPRESSION: NEGATIVE STUDY OF THE LEFT SHOULDER. NO RADIOGRAPHIC EVIDENCE OF ACUTE INJURY. 04/19/20 10:14 X-ray showed no acute injury dislocation or fracture in the left shoulder. Discharge - Discharge Clinical Impression: Sprain of left shoulder Condition: Stable Disposition: HOME, SELF-CARE Instructions: Sling as Treatment (OM) Additional Instructions: Shoulder Injury You have injured your shoulder. This usually results from stretching or tearing of the tendons during trauma. Time and protection are required in order to heal properly. Many injuries are quite disabling, and should be taken seriously. Initial treatment includes cold packs and a sling to rest the shoulder. The physician has assessed the seriousness of your injury, and has outlined a treatment plan. Understand that this treatment may change, depending on how you progress. If a re-examination was recommended, it is important that you follow up as instructed. Some shoulder injuries (such as partial tear of the rotator cuff) are only suspected after you've failed to improve. Call us if there's severe pain, numbness, or loss of function. You have been placed in a sling to support the weight of your left arm as you continue to improve. Recommend you continue with ice pack as needed and take ibuprofen and or Tylenol as needed for pain. Follow-up with your primary care physician this week. Prescriptions: Ibuprofen [Ibu] 600 mg PO TID PRN #21 tablet PRN Reason: Pain Scale Of 3 Forms: Return to Work Referrals: VENESSA REGALADO MD [Primary Care Provider] - Follow up as needed I personally performed the services described in the documentation, reviewed and edited the documentation which was dictated to the scribe in my presence, and it accurately records my words and actions.
[2020-04-19 10:40] VITALS: BP 178/87
== END 2020-04-19 10:47 | disposition home or self-care (01) ==
LOC: ER 07:37
DX: S43.402A Unspecified sprain of left shoulder joint, initial encounter (principal); M25.511 Pain in right shoulder; X50.9XXA Other and unspecified overexertion or strenuous movements or postures, initial encounter; Y99.0 Civilian activity done for income or pay; Z79.899 Other long term (current) drug therapy; I10 Essential (primary) hypertension
CPT/HCPCS: 99283

== ENCOUNTER → 2020-06-02 | Outpatient (CLI) | payer BC ==
--- NOTE | 2020-06-02 13:25 | ER [facility] ASSESSMENT REPORT ---
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 - Symptoms Subjective Fever([place] feverish): No Chills: No Muscule Aches: Yes Runny Nose: Yes Sore Throat: Yes Cough (New or worsening chronic cough): Yes Shortness of breath: No Nausea or Vomiting: Yes Headache: Yes Abdominal Pain: No Diarrhea(3 or more loose stools in last 24 hours): Yes - Do you have any of the following Chronic lung disease: Asthma or emphysema or COPD: No Cystic Fibrosis: No Diabetes: No High Blood Pressure: Yes Cardiovascular Disease: Yes Chronic Kidney Disease: No Chronic Liver Disease: No Chronic blood disorder like Sickle Cell Disease: No Weak immune system due to disease or medication: No Neurologic condition that limits movement: No Developmental delay - Moderate to Severe: No Recent (within past 2 weeks) or current : No Morbid Obesity (>100 pounds over ideal weight): No Obesity Comment: Height 5 feet 1 inches weight 174 pounds - Objective Temperature: 99.2 F Pulse Rate: 91 Respiratory Rate: 16 Blood Pressure: 131/75 O2 Sat by Pulse Oximetry: 94 Objective: Given above, testing performed: If Testing Performed: Test Specimen Type Sent to General - General Information source: Patient Notes: Patient here at [facility] for Covid testing patient reports had exposure to a friend from [employer] who has tested positive for Covid patient started to have symptoms last week has been seen by her PCP this morning Dr. Stone Sorenson who has tested her for flu and that test has reported as negative by the patient. Patient symptoms include fatigue nausea diarrhea muscle aches runny nose sore throat and a cough patient also has a headache. Patient was sent here for Covid testing per PCPs recommendation. - Related Data Allergies/Adverse Reactions: No Known Allergies Allergy (Verified 05/27/19 09:55) Past Medical History - General Information source: Patient - Quit 30-40 years ago - Social History Smoking Status: Former Smoker Family History: Reviewed & Not Pertinent - Past Medical History Cardiac Medical History: Reports: Hx Hypertension Renal/ Medical History: Denies: Hx Peritoneal Dialysis Past Surgical History: Reports: Hx Hysterectomy, Hx Orthopedic Surgery Physical Exam - General General appearance: Appears well, Alert In distress: None Notes: PHYSICAL EXAMINATION: GENERAL: Well-appearing and in no acute distress. HEAD: Atraumatic, normocephalic. EYES: sclera anicteric, conjunctiva are normal. ENT: nares patent. Moist mucous membranes. NECK: Normal range of motion, supple without lymphadenopathy LUNGS: CTAB and equal. No wheezes rales or rhonchi. Respirations even and unlabored lung sounds clear. Patient has a occasional dry cough with deep inhalation HEART: Regular rate and rhythm without murmurs ABDOMEN: Soft, nontender, normal bowel sounds, no guarding. EXTREMITIES: Normal range of motion, no pitting edema. No cyanosis. NEUROLOGICAL: Cranial nerves grossly intact. Normal speech. Normal gait. PSYCH: Normal mood, normal affect. SKIN: Warm, Dry, normal turgor, no rashes or lesions noted Diagnostic Results Laboratory Results: Pending strep culture. Pending Covid testing results. Patient provided instructions regarding Covid to include: As a person under investigation for Covid 19, the [facility] of Health and Human Services, division of public health advises you to adhere to the following guidance until your test results are reported to you. If your test result is positive, you will receive additional information from your provider and your local health department at that time. Remain at home until you are cleared by the health provider or public health authorities. Keep a log of visitors to your home, notify any visitors to your home of your isolation status. If you plan to move to a new address or leave the county, notify the local health department in your County. Call your doctor or seek care if you have an urgent medical need. Before seeking medical care, call ahead to get instructions from the provider before arriving at the medical office clinic or hospital. Notify them that you are being tested for the virus that causes Covid 19 so that arrangements can be made, as necessary, to prevent transmission to others in the healthcare setting. Next, notify the local health department in your county. If a medical emergency arises and you need to call 911, inform the first responders that you are being tested for the virus that causes Covid 19. Next, notify the local health department in your county. Patient Education/Counseling Counseling/Education: Patient presents with upper respiratory symptoms worrisome for possible Covid 19. Patient does not have emergency worring symptoms such as difficulty breathing, shortness of breath, chest pain, pressure, confusion or cyanosis. Patient appears suitable for discharge. Patient instructed to follow-up with her PCP Dr. Santos. To ED for persistent or worsening symptoms. Patient's vital signs are stable and patient is nontoxic in appearance. Good return precautions have been discussed with patient, patient verbalized understanding and is agreeable with discharge plan of care at this time. C Discharge - Discharge Condition: Stable Disposition: Home; Selfcare
[2020-06-02 13:26] VITALS: BP 131/75
== END ==
LOC: RDC 11:59
PROVIDERS: ATTEND Nurse Practitioner Family
DX: U07.1 COVID-19 (principal); R05 Cough; R09.89 Other specified symptoms and signs involving the circulatory and respiratory systems; J02.9 Acute pharyngitis, unspecified; R11.0 Nausea; R51.9 Headache, unspecified; R19.7 Diarrhea, unspecified; I10 Essential (primary) hypertension; R53.83 Other fatigue; Z87.891 Personal history of nicotine dependence
CPT/HCPCS: 87070; 87880; 99201; 99211; U0003; C9803; 87635

== ENCOUNTER → 2020-06-10 | Outpatient (CLI) | payer BC ==
--- NOTE | 2020-06-10 09:30 | ER [facility] ASSESSMENT REPORT ---
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 - Symptoms Subjective Fever([place] feverish): No Chills: No Muscule Aches: Yes Runny Nose: Yes Sore Throat: No Cough (New or worsening chronic cough): No Shortness of breath: No Nausea or Vomiting: No Headache: Yes Abdominal Pain: No Diarrhea(3 or more loose stools in last 24 hours): No - Do you have any of the following Chronic lung disease: Asthma or emphysema or COPD: No Cystic Fibrosis: No Diabetes: No High Blood Pressure: No Cardiovascular Disease: Yes Chronic Kidney Disease: No Chronic Liver Disease: No Chronic blood disorder like Sickle Cell Disease: No Weak immune system due to disease or medication: No Neurologic condition that limits movement: No Developmental delay - Moderate to Severe: No Recent (within past 2 weeks) or current : No Morbid Obesity (>100 pounds over ideal weight): No - Objective Temperature: 99.0 F Pulse Rate: 71 Respiratory Rate: 18 Blood Pressure: 120/59 O2 Sat by Pulse Oximetry: 97 Objective: Given above, testing performed: If Testing Performed: Test Specimen Type Sent to General - General Information source: Patient Notes: Patient presents to the [facility] for screening for the coronavirus. Patient had a previously positive test and states that she is now out of quarantine. 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 Patient reports a history of high blood pressure. - Related Data Allergies/Adverse Reactions: No Known Allergies Allergy (Verified 05/27/19 09:55) Past Medical History - General Information source: Patient - Social History Smoking Status: Former Smoker Family History: Reviewed & Not Pertinent - Past Medical History Cardiac Medical History: Reports: Hx Hypertension Renal/ Medical History: Denies: Hx Peritoneal Dialysis Past Surgical History: Reports: Hx Hysterectomy, Hx Orthopedic Surgery Physical Exam - Notes Notes: The patient was evaluated during the global Covid 19 pandemic, and that diagnosis was suspected/considered upon their initial presentation. Their evaluation and testing was consistent with current guidelines for patients who present with complaints or symptoms that may be related to Covid 19. Full physical exam could not be performed due to covid 19 isolation protocols. Constitutional: Nontoxic appearance, no acute distress Eyes: Nonicteric, extraocular movements intact, sclera clear Cardiovascular: Heart rate and rhythm regular, no JVD Respiratory: Breath sounds clear bilaterally, nonlabored breathing, no use of accessory muscles, no tachypnea Gastrointestinal: Abdomen not distended Muculoskeletal: Moves all extremities well Skin: Normal color Neuro: Awake alert oriented, normal speech Psych: Normal mood and affect Diagnostic Results Laboratory Results: Patient presents for screening for possible Covid 19. Patient does not have emergency worrying symptoms such as difficulty breathing, shortness of breath, chest pain, pressure, confusion or cyanosis. Patient appears suitable for discharge as vital signs are stable and patient is nontoxic in appearance. Good return precautions have been discussed with patient, patient verbalized understanding and is agreeable with discharge plan of care at this time. Patient Education/Counseling Counseling/Education: Patient was provided with discharge information including: As a person under investigation for Covid 19, the [facility] and Human Services, division of public health advises you to adhere to the following guidance until your test results are reported to you. If your test result is positive, you will receive additional information from your provider and your local health department at that time. Remain at home until you are cleared by the health provider or public health authorities. Keep a log of visitors to your home, notify any visitors to your home of your isolation status. If you plan to move to a new address or leave the [facility], notify the local health department in your County. Call your doctor or seek care if you have an urgent medical need. Before seeking medical care, call ahead to get instructions from the provider before arriving at the medical office clinic or hospital. Notify them that you are being tested for the virus that causes Covid 19 so that arrangements can be made, as necessary, to prevent transmission to others in the healthcare setting. Next, notify the local health department in your county. If a medical emergency arises and you need to call 911, inform the first responders that you are being tested for the virus that causes Covid 19. Next, notify the local health department in your county. [facility] Discharge - Discharge Clinical Impression: Encounter for screening for COVID-19 Condition: Stable Disposition: Home; Selfcare
[2020-06-10 09:35] VITALS: BP 120/59
== END ==
LOC: RDC 08:59
PROVIDERS: ATTEND Nurse Practitioner Family
DX: Z20.822 Contact with and (suspected) exposure to COVID-19 (principal); R09.89 Other specified symptoms and signs involving the circulatory and respiratory systems; M79.10 Myalgia, unspecified site; R51.9 Headache, unspecified; I10 Essential (primary) hypertension; Z86.16 Personal history of COVID-19; Z87.891 Personal history of nicotine dependence
CPT/HCPCS: 99211 ×2; U0003; C9803; 87635

== ENCOUNTER 2020-06-29 06:45 | Emergency (ER) | payer BC ==
[2020-06-29 07:08] VITALS: BP 180/96
[2020-06-29] MEDS ORDERED: METHYLPREDNISOLONE INJ 125 MG/2 ML SDV IV ONE (08:12)
[2020-06-29] MEDS ORDERED: KETOROLAC TROMETHAMINE INJ/PF 30 MG/1 ML SDV IV ONE (08:12)
--- NOTE | 2020-06-29 10:22 | RADIOLOGY REPORT (SQ) ---
EXAM DESCRIPTION: FOREARM RIGHT IMAGES COMPLETED DATE/TIME: 06/29/2020 10:05 am REASON FOR STUDY: Injury/pain COMPARISON: None. NUMBER OF VIEWS: Two views. TECHNIQUE: Two radiographic images acquired of the right forearm, including elbow and wrist in at le ast one projection. LIMITATIONS: None. FINDINGS: MINERALIZATION: Normal. BONES: No acute fracture. No worrisome bone lesions. SOFT TISSUES: No obvious swelling or foreign body. OTHER: No other significant finding. IMPRESSION: NEGATIVE STUDY OF THE RIGHT FOREARM. NO RADIOGRAPHIC EVIDENCE OF ACUTE INJURY. TECHNICAL DOCUMENTATION: JOB ID: [id number] [employer]- All Rights Reserved Reading location - IP/workstation name: [email or web address]
--- NOTE | 2020-06-29 10:26 | ER Document Report ---
ED Hand/Wrist Injury - General Chief Complaint: Wrist Injury Stated Complaint: RIGHT ARM PAIN Time Seen by Provider: 06/29/20 07:46 Primary Care Provider: VENESSA REGALADO MD [Primary Care Provider] - Follow up as needed Notes: 64-year-old woman presenting to the emergency department with complaint of pain in swelling in her right wrist and forearm area. 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 She was able to catch him pulling on the right arm. At the time there was no pain however by the time she got home she was starting to develop some tenderness and pain in the right wrist. She awoke this morning with severe pain involving right wrist and forearm with swelling and tenderness. She points to the volar surface of the wrist as the most tender area. TRAVEL OUTSIDE OF THE [place] IN LAST 30 DAYS: No - Related Data Allergies/Adverse Reactions: No Known Allergies Allergy (Verified 05/27/19 09:55) Past Medical History - Social History Smoking Status: Never Smoker Frequency of alcohol use: None Drug Abuse: None Family History: Reviewed & Not Pertinent Patient has homicidal ideation: No - Past Medical History Cardiac Medical History: Reports: Hx Hypertension Renal/ Medical History: Denies: Hx Peritoneal Dialysis Past Surgical History: Reports: Hx Hysterectomy, Hx Orthopedic Surgery - Immunizations Immunizations up to date: Yes Hx Diphtheria, Pertussis, Tetanus Vaccination: No - not sure Review of Systems - Review of Systems Notes: Constitutional: Negative for fever. HENT: Negative for sore throat. Eyes: Negative for visual changes. Cardiovascular: Negative for chest pain. Respiratory: Negative for shortness of breath. Gastrointestinal: Negative for abdominal pain, vomiting or diarrhea. Genitourinary: Negative for dysuria. Musculoskeletal: See HPI Skin: Negative for rash. Neurological: Negative for headaches, weakness or numbness. 10 point ROS negative except as marked above and in HPI. Physical Exam - Vital signs Vitals: Temp Pulse Resp Pulse Ox 98.1 F 71 14 97 06/29/20 07:05 06/29/20 07:05 06/29/20 07:05 06/29/20 07:05 - Notes Notes: PHYSICAL EXAMINATION: Physical Exam: General: Well-nourished well-developed 64-year-old female in moderate distress secondary to right forearm and wrist pain HEENT: NC/AT, pupils equal round and reactive to light, MM moist,nares clear, oropharynx clear, airway patent Neck: supple, no adenopathy, no masses. Good range of motion Lungs: clear, no wheezing, no rales no rhonchi CVS: Regular rate and rhythm no murmur gallop or rub Abdomen: Soft, active, nontender, no masses, no hepatosplenomegaly Ext: Swelling in the right wrist and hand with decreased range of motion of the wrist and fingers secondary to tenderness. There is tenderness to palpation no pitting edema, good pulses and no obvious deformity or step-off. Neuro: Alert and responsive, moving all 4 extremities on command, cranial nerves intact, no focal findings Skin: Intact no open lesions, no rash PSYCH: Normal mood, normal affect. Course - Re-evaluation Re-evalutation: 06/29/20 10:21 64-year-old female presenting with injury to right forearm and wrist apparently secondary to a swelling lifting episode. X-ray of the forearm is negative for fracture. Patient is given Solu-Medrol and Toradol in the emergency department. I have asked her to continue her medications as an outpatient with a short course of prednisone and Naprosyn. She is instructed to follow-up with her primary care doctor as needed. 06/29/20 10:22 - Vital Signs Vital signs: Temp Pulse Resp BP Pulse Ox 98.1 F 71 14 180/96 H 97 06/29/20 07:05 06/29/20 07:05 06/29/20 07:05 06/29/20 07:06 06/29/20 07:05 - Laboratory Results Critical Laboratory Results Reviewed: No Critical Results - Radiology Results Radiology Results Interpreted: 06/29/20 10:26 Forearm X-Ray 06/29/20 09:57 IMPRESSION: NEGATIVE STUDY OF THE RIGHT FOREARM. NO RADIOGRAPHIC EVIDENCE OF ACUTE INJURY. Critical Radiology Results Reviewed: No Critical Results Procedures - Immobilization Right Wrist Time completed: 10:32 Pre-Proc Neuro Vasc Exam: Normal Immobilizer type: Cock-up Performed by: RN Post-Proc Neuro Vasc Exam: Normal Alignment checked and good: Yes Discharge - Discharge Clinical Impression: Tendinitis, Right wrist pain Condition: Good Disposition: HOME, SELF-CARE Instructions: Wrist Sprain ([facility]) Additional Instructions: You were seen in the emergency department today with right forearm and wrist pain after assisting a patient in walking. Please take the medications as prescribed Naprosyn and prednisone. Wear the splint, elevation and ice. You will need to follow-up with your physician for further management as needed. If your symptoms are worsening or if you have other concerns you may return to the emergency department for further evaluation and treatment HOME CARE INSTRUCTIONS & INFORMATION: Thank you for choosing us for your medical needs. We hope you're satisfied with the care you received. After you leave, you must properly care for your problem and, at the same time, observe its progress. Any condition can change. Some illnesses can change rapidly over hours or days. If your condition worsens, return to the Emergency Department or see your physician promptly. ABOUT YOUR X-RAYS AND EKG'S: If you had an EKG or X-rays taken, they have been read by the Emergency Physician. The X-rays and EKG's will also be read by a Radiologist or Key Holder within 24 hours. If discrepancies are noted, you will be notified by telephone. Please be certain the ED has a correct telephone number & address where you can be reached. Also, realize that some fractures or abnormalities do not show up on initial X-rays. If your symptoms continue, see your physician. ABOUT YOUR LABORATORY TEST: If you had laboratory tests, the results have been reviewed by the Emergency Physician. Some test results (for example cultures) may not be available for several days. You will be contacted if any test result shows you need additional treatment. Please be certain the ED has a correct telephone number and address where you can be reached. ABOUT YOUR MEDICATIONS: You will receive instructions on how to take your medicine on the prescription label you receive. Additional information may be provided by the Pharmacy. If you have questions afterwards, call the ED for clarification or further instructions. Some prescribed medications may cause drowsiness. Do not perform tasks such as driving a car or operating machinery without consulting your Pharmacist. If you feel you need a refill of pain medication, your condition will need re-evaluation. Please do not call for a refill of any medication. ABOUT YOUR SIGNATURE: Signature of this document acknowledges to followin. Understanding that you received emergency treatment and that you may be released before al medical problems are known or treated. Please be certain the ED has a correct phone number & address where you can be reached. 2. Acknowledgement that you will arrange for follow-up care as recommended. 3. Authorization for the Emergency Physician to provide information to your follow-up Physician in order to maximize your care. AT ANY TIME, IF YOUR SYMPTOMS CHANGE SIGNIFICANTLY OR WORSEN OR YOU DEVELOP NEW SYMPTOMS, RETURN TO THE EMERGENCY DEPARTMENT IMMEDIATELY FOR RE-EVALUATION. OUR GOAL IS TO PROVIDE EXCELLENT MEDICAL CARE! WE HOPE THAT WE HAVE MET YOUR EXPECTATIONS DURING YOUR EMERGENCY DEPARTMENT VISIT AND THAT YOU FEEL YOU HAVE RECEIVED EXCELLENT CARE! Prescriptions: Prednisone [Deltasone 20 mg Tablet] 1 tab PO BID 5 Days #10 tablet Naproxen [Naprosyn] 500 mg PO BID #20 tablet Referrals: VENESSA REGALADO MD [Primary Care Provider] - Follow up as needed
--- OUTSIDE RECORDS SUMMARY | 2020-07-01 10:42 | XMS REPORT ---
:1955 Author Organization [facility] [address] [place] [address] Care Team Providers Name Role Phone [facility], MED Primary Care Physician Unavail able Sania Richardson Attending Clinician Unavailable Allergies, Adverse Reactions, Alerts Allergy Allergy Status Severity Reaction(s) Onset Inactive Treating C omments Name Type Date Date Clinician Aspirin Allergy to Inactive substance Medications Ordered Filled Start Stop Current Ordering Indication Dosage Frequency Signature Comments Components Medication Medication Date Date Medication? Clinician (SIG) Name Name Ecotrin Low No 1 Q1D Ecotrin Strength 81 Low mg Strength tablet,ente 81 mg idris coated tablet,ent Take 1 clary tablet coated every day Take 1 by oral tablet route for every day 30 days. by oral route for 30 days. Tylenol No 2 Q8H Tylenol Arthritis Arthritis Pain 650 mg Pain 650 tablet,exte mg nded tablet,ext release ended Take 2 release tablets Take 2 every 8 tablets hours by every 8 oral route hours by as needed. oral route as needed. potassium No 1 Q1D potassium chloride ER chloride 20 mEq ER 20 mEq tablet,exte tablet,ext nded ended release release Take 1 Take 1 tablet tablet every day every day by oral by oral route. route. amoxicillin No 1 Q12H amoxicilli 875 n 875 mg-potassiu mg-potassi m um clavulanate clavulanat 125 mg e 125 mg tablet Take tablet 1 tablet Take 1 every 12 tablet hours by every 12 oral route hours by for 10 oral route days. for 10 days. Pyridium No 1 TID Pyridium 200 mg 200 mg tablet Take tablet 1 tablet 3 Take 1 times a day tablet 3 by oral times a route for 2 day by days. oral route for 2 days. ascorbic No 1 Q1D ascorbic acid acid (vitamin C) (vitamin 1,000 mg C) 1,000 tablet Take mg tablet 1 tablet Take 1 every day tablet by oral every day route for by oral 30 days. route for 30 days. Vitamin D3 No 1 Q1D Vitamin D3 25 mcg 25 mcg (1,000 (1,000 unit) unit) tablet Take tablet 1 tablet Take 1 every day tablet by oral every day route for by oral 30 days. route for 30 days. butalbital- No butalbital acetaminoph -acetamino en-caffeine phen-caffe 50 mg-325 ine 50 mg-40 mg mg-325 tablet mg-40 mg tablet cyclobenzap No cyclobenza rine 10 mg krys 10 tablet mg tablet diclofenac No diclofenac 1 % topical 1 % gel topical gel hydrochloro No hydrochlor thiazide othiazide 12.5 mg 12.5 mg capsule capsule TAKE 1 TAKE 1 CAPSULE CAPSULE EVERY EVERY MORNIGN FOR MORNIGN BLOOD FOR BLOOD PRESSURE PRESSURE hydrochloro No hydrochlor thiazide 25 othiazide mg tablet 25 mg TAKE 1/2 tablet TABLET TAKE 1/2 TWICE DAILY TABLET TWICE DAILY hydrocodone No hydrocodon 5 e 5 mg-acetamin mg-acetami ophen 325 nophen 325 mg tablet mg tablet hydrocodone No hydrocodon -homatropin e-homatrop e 5 mg-1.5 ine 5 mg/5 mL mg-1.5 oral syrup mg/5 mL oral syrup ketorolac No 30mg ketorolac 60 mg/2 mL 60 mg/2 mL intramuscul intramuscu ar solution lar Inject 30 solution mg as Inject 30 needed by mg as intramuscul needed by ar route. intramuscu lar route. losartan 25 No losartan mg tablet 25 mg tablet methocarbam No methocarba ol 750 mg mol 750 mg tablet Take tablet 1 tablet 3 Take 1 times a day tablet 3 by oral times a route for 7 day by days. oral route for 7 days. naproxen No 1 BID naproxen 500 mg 500 mg tablet TAKE tablet ONE TABLET TAKE ONE BY MOUTH TABLET BY TWICE DAILY MOUTH NEEDED TWICE for 10 days DAILY NEEDED for 10 days nitrofurant No nitrofuran oin toin monohydrate monohydrat /macrocryst e/macrocry als 100 mg stals 100 capsule mg capsule potassium No potassium chloride ER chloride 20 mEq ER 20 mEq tablet,exte tablet,ext nded ended release(par release(pa t/cryst) rt/cryst) Tubersol 5 No .1mL Q1D Tubersol 5 tub. tub. unit/0.1 mL unit/0.1 intradermal mL injection intraderma solution l Inject 0.1 injection mL every solution day by Inject 0.1 intradermal mL every route as day by directed intraderma for 1 day. l route as directed for 1 day. Afluria Qd No Afluria Qd (36 mos (36 mos up)(PF)60 up)(PF)60 mcg (15 mcg mcg (15 x4)/0.5 mL mcg IM syringe x4)/0.5 mL IM syringe benzonatate No benzonatat 200 mg e 200 mg capsule capsule Problems Condition Condition Condition Status Onset Resolution Last Treatin g Comments Name Details Category Date Date Treatment Clinician Date Lumbar disc Lumbar Disc Problem Active prolapse Prolapse 4-10 with with 00:00: radiculopat Radiculopat 00 hy hy Degeneratio Degeneratio Problem Active n of lumbar n of Lumbar 4-10 interverteb Interverteb 00:00: ral disc ral Disc 00 Spinal Spinal Problem Active stenosis of Stenosis of 4-10 lumbar Lumbar 00:00: region Region 00 Low back Low Back Problem Active pain Pain 4-10 00:00: 00 Bursitis of Bursitis of Problem Active hip Hip 4-10 00:00: 00 Hypertensiv Hypertensiv Problem Active e disorder e Disorder 06-25 00:00: 00 Pain in Pain in Problem Active left thumb Left Thumb 06-25 00:00: 00 Not on file Not on file [id number] Goiter Goiter Problem Active Body mass Body Mass Problem Active index 30+ - Index 30+ - obesity Obesity Essential Essential Problem Active hypertensio Hypertensio n n Varicose Varicose Problem Active veins of Veins of lower Lower extremity Extremity Neck pain Neck Pain Problem Active Hyperlipide Hyperlipide Problem Active olu olu Cervical Cervical Problem Active spondylosis Spondylosis with with radiculopat Radiculopat hy hy Chronic Chronic Problem Active cough Cough Procedures Procedure Date / Time Performed Performing Clinician Devic e XR, chest, 2 view 2020-06-02 00:00:00 pulse oximetry (PROC) 2020-04-12 00:00:00 pulse oximetry (PROC) 2020-03-29 00:00:00 XR, wrist, 2 view 2020-03-29 00:00:00 XR, wrist 2019-11-09 00:00:00 MAMMO, screening, digital, 2019-10-18 00:00:00 bilateral XR, chest, 2 view 2019-08-07 00:00:00 ELECTROCARDIOGRAM COMPLETE 2019-03-06 00:00:00 CT, abdomen + pelvis, w/ contrast 2019-03-06 00:00:00 XR, cervical spine 2018-11-30 00:00:00 XR, shoulder 2018-11-30 00:00:00 epidural steroid injection, lumbar 2018-10-17 00:00:00 (PROC) MAMMO, screening, digital, 2018-09-28 00:00:00 bilateral RADIOLOGIC EXAM HIP, UNILATERAL 2-3 2018-09-13 00:00:00 VIEWS US, thyroid 2018-08-09 00:00:00 ELECTROCARDIOGRAM COMPLETE 2018-08-09 00:00:00 LIPID PANEL 2014-08-05 08:45:00 OFFICE/OUTPATIENT VISIT, EST 2014-08-05 08:45:00 ROUTINE VENIPUNCTURE 2014-08-05 08:45:00 COMPLETE CBC W/AUTO DIFF WBC 2014-07-11 11:15:00 COMPREHEN METABOLIC PANEL 2014-07-11 11:15:00 ROUTINE VENIPUNCTURE 2014-07-11 11:15:00 GLYCOSYLATED HEMOGLOBIN TEST 2014-07-11 11:15:00 OFFICE/OUTPATIENT VISIT, EST 2014-07-11 11:15:00 TOTAL HYSTERECTOMY 2009-06-06 00:00:00 Hysterectomy Procedure on Bladder Procedure on Neck Neck Surgery Hysterectomy Results Test Description Test Time Test Comments Text Results Atomic Results Result Comments SARS-CoV-2 RNA Resp Ql BARB+probe 2020-06-13 00:00:00 Test Item Value Reference Range Comments SARS-CoV-2 RNA Resp Ql BARB+probe Not detected [place] [facility] Case ID: (test code = 42848-4) [id number] SARS-CoV-2 RNA Resp Ql [id number] 00:00:00 Test Item Value Reference Range Comments SARS-CoV-2 RNA Resp Ql Detected [place] [facility] Case ID: BARB+probe (test code = COVID_105 139237 60011-3) CBC W Auto Differential panel - [id number] 14:35:00 Test Item Value Reference Range Comments WBC (test code = WBC) 3.2 K/uL 4.1-10.9 lym% (test code = lym%) 43.5 % 10.0-58.5 lym# (test code = lym#) 1.4 % 0.6-4.1 mxd# (test code = mxd#) 0.4 % 0.0-1.8 mxd% (test code = mxd%) 11.9 % 0.1-24.0 gran (test code = gran) 1.4 % 2.0-7.8 gran% (test code = gran%) 44.6 % 37.0-92.0 RBC (test code = RBC) 5.02 M/uL 4.20-6.30 HGB (test code = HGB) 14.8 g/dL 14.1-18.1 HCT (test code = HCT) 46.3 % 34.5-53.7 MCV (test code = MCV) 92.3 fL 80.0-97.0 MCH (test code = MCH) 29.5 pg 26.0-32.0 MCHC (test code = MCHC) 32.0 g/dL 31.0-36.0 RDW (test code = RDW) 14.8 % 11.5-14.5 plt (test code = plt) 155 K/uL 140-440 MPV (test code = MPV) 7.9 fL 0.0-99.8 Comprehensive metabolic 2000 panel - Serum or [id number] 00:00:00 Test Item Value Reference Range Comments Glucose [Mass/volume] in Serum or Plasma 115 mg/dL 65-99 (test code = 2345-7) Urea nitrogen [Mass/volume] in Serum or 10 mg/dL 8-27 Plasma (test code = 3094-0) Creatinine [Mass/volume] in Serum or Plasma 0.94 mg/dL 0.57 -1.00 (test code = 2160-0) eGFR if nonafricn AM (test code = eGFR if 66 mL/min/1.73 >5 9 nonafricn AM) eGFR if africn AM (test code = eGFR if africn 76 mL/min/1.73 >59 AM) Urea nitrogen/Creatinine [Mass Ratio] in 11 06-02 Serum or Plasma (test code = 3097-3) Sodium [Moles/volume] in Serum or Plasma 135 mmol/L 134-144 (test code = 2951-2) Potassium [Moles/volume] in Serum or Plasma 4.1 mmol/L 3.5- 5.2 (test code = 2823-3) Chloride [Moles/volume] in Serum or Plasma 99 mmol/L 96-10 6 (test code = 2075-0) Carbon dioxide, total [Moles/volume] in Serum 20 mmol/L 20 -29 or Plasma (test code = 2027-9) Calcium [Mass/volume] in Serum or Plasma 8.8 mg/dL 8.7-10. 3 (test code = 59518-9) Protein [Mass/volume] in Serum or Plasma 7.6 g/dL 6.0-8.5 (test code = 2885-2) Albumin [Mass/volume] in Serum or Plasma 4.6 g/dL 3.8-4.8 (test code = 1751-7) Globulin [Mass/volume] in Serum by 3.0 g/dL 1.5-4.5 calculation (test code = 67852-8) Albumin/Globulin [Mass Ratio] in Serum or 1.5 1.2-2. 2 Plasma (test code = 1759-0) Bilirubin.total [Mass/volume] in Serum or 0.6 mg/dL 0.0-1. 2 Plasma (test code = 1975-2) Alkaline phosphatase [Enzymatic 87 IU/L 39-117 activity/volume] in Serum or Plasma (test code = 6768-6) Aspartate aminotransferase [Enzymatic 35 IU/L 0-40 activity/volume] in Serum or Plasma (test code = 1920-8) rapid flu (A+B)2019-08-07 15:52:00 Test Item Value Reference Range Comments INFLUENZA TYPE A (test code = INFLUENZA TYPE A) negative INFLUENZA TYPE B (test code = INFLUENZA TYPE B) negative rapid flu (A+B)2019-08-07 15:52:00 Test Item Value Reference Range Comments INFLUENZA TYPE A (test code = INFLUENZA TYPE A) negative INFLUENZA TYPE B (test code = INFLUENZA TYPE B) negative rapid strep group A, [id number] 15:51:00 Test Item Value Reference Range Comments Strep (test code = Strep) negative rapid strep group A, [id number] 15:51:00 Test Item Value Reference Range Comments Strep (test code = Strep) negative CBC W Auto Differential panel - [id number] 15:50:00 Test Item Value Reference Range Comments WBC (test code = WBC) 6.0 K/uL 4.1-10.9 lym% (test code = lym%) 12.8 % 10.0-58.5 lym# (test code = lym#) 0.8 % 0.6-4.1 mxd# (test code = mxd#) 0.5 % 0.0-1.8 mxd% (test code = mxd%) 8.2 % 0.1-24.0 gran (test code = gran) 4.7 % 2.0-7.8 gran% (test code = gran%) 79.0 % 37.0-92.0 RBC (test code = RBC) 4.86 M/uL 4.20-6.30 HGB (test code = HGB) 14.5 g/dL 14.1-18.1 HCT (test code = HCT) 44.7 % 34.5-53.7 MCV (test code = MCV) 91.9 fL 80.0-97.0 MCH (test code = MCH) 29.8 pg 26.0-32.0 MCHC (test code = MCHC) 32.4 g/dL 31.0-36.0 RDW (test code = RDW) 13.2 % 11.5-14.5 plt (test code = plt) 163 K/uL 140-440 MPV (test code = MPV) 8.1 fL 0.0-99.8 CBC W Auto Differential panel - [id number] 15:50:00 Test Item Value Reference Range Comments WBC (test code = WBC) 6.0 K/uL 4.1-10.9 lym% (test code = lym%) 12.8 % 10.0-58.5 lym# (test code = lym#) 0.8 % 0.6-4.1 mxd# (test code = mxd#) 0.5 % 0.0-1.8 mxd% (test code = mxd%) 8.2 % 0.1-24.0 gran (test code = gran) 4.7 % 2.0-7.8 gran% (test code = gran%) 79.0 % 37.0-92.0 RBC (test code = RBC) 4.86 M/uL 4.20-6.30 HGB (test code = HGB) 14.5 g/dL 14.1-18.1 HCT (test code = HCT) 44.7 % 34.5-53.7 MCV (test code = MCV) 91.9 fL 80.0-97.0 MCH (test code = MCH) 29.8 pg 26.0-32.0 MCHC (test code = MCHC) 32.4 g/dL 31.0-36.0 RDW (test code = RDW) 13.2 % 11.5-14.5 plt (test code = plt) 163 K/uL 140-440 MPV (test code = MPV) 8.1 fL 0.0-99.8 CBC W Auto Differential panel - [id number] 11:00:00 Test Item Value Reference Range Comments WBC (test code = WBC) 8.1 K/uL 4.1-10.9 lym% (test code = lym%) 35.4 % 10.0-58.5 lym# (test code = lym#) 2.9 % 0.6-4.1 mxd# (test code = mxd#) 0.5 % 0.0-1.8 mxd% (test code = mxd%) 6.1 % 0.1-24.0 gran (test code = gran) 4.7 % 2.0-7.8 gran% (test code = gran%) 58.5 % 37.0-92.0 RBC (test code = RBC) 4.93 M/uL 4.20-6.30 HGB (test code = HGB) 14.7 g/dL 14.1-18.1 HCT (test code = HCT) 45.3 % 34.5-53.7 MCV (test code = MCV) 91.8 fL 80.0-97.0 MCH (test code = MCH) 29.8 pg 26.0-32.0 MCHC (test code = MCHC) 32.5 g/dL 31.0-36.0 RDW (test code = RDW) 13.3 % 11.5-14.5 plt (test code = plt) 207 K/uL 140-440 MPV (test code = MPV) 7.2 fL 0.0-99.8 fecal occult blood, [id number] 09:49:00 Test Item Value Reference Range Comments Occult Blood (test code = Occult Blood) negative visual [id number] 08:28:40 Test Item Value Reference Range Comments R Eye Uncorrected (test code = R Eye Uncorrected) 20/200 L Eye Uncorrected (test code = L Eye Uncorrected) 20/200 R Eye Corrected (test code = R Eye Corrected) 20/30 L Eye Corrected (test code = L Eye Corrected) 20/30 Comprehensive metabolic 2000 panel - Serum or [id number] 00:00:00 Test Item Value Reference Range Comments calcium (test code = calcium) 9.2 mg/dL 8.4-10.2 glucose (test code = glucose) 83 mg/dL 75-110 blood urea nitrogen (test code = blood urea 12 mg/dL 7-20 nitrogen) creatinine result (test code = creatinine 0.64 mg/dL 0.52-1 .25 result) eGFR,non (test code = eGFR,non > 60 >60 ) eGFR, (test code = eGFR, > 60 >60 guinean) potassium (test code = potassium) 4.5 mmol/L 3.6-5.0 chloride (test code = chloride) 104 mmol/L 98-107 carbon dioxide (test code = carbon dioxide) 27 mmol/L 22-3 0 sodium (test code = sodium) 142.1 mmol/L 137-145 anion gap (test code = anion gap) 11 5-19 albumin (test code = albumin) 4.5 g/dL 3.5-5.0 aspartate amino transferase (test code = 29 U/L 14-36 aspartate amino transferase) alkaline phosphatase (test code = alkaline 93 U/L 38-12 6 phosphatase) alanine aminotransferase (test code = alanine 26 U/L 9- 52 aminotransferase) bilirubin,total (test code = bilirubin,total) 0.4 mg/dL 0. 2-1.3 bilirubin,direct (test code = bilirubin,direct) 0.3 mg/dL 0.0-0.4 total protein (test code = total protein) 7.4 g/dL 6.3-8. 2 Triiodothyronine (T3) Free [Mass/volume] in Serum or [id number] 00:00:00 Test Item Value Reference Range Comments free T3 (test code = free T3) 4.05 pg/mL 2.77-5.27 Thyroxine (T4) free [Mass/volume] in Serum or [id number] 00:00:00 Test Item Value Reference Range Comments free T4 (free thyroxine) (test code = free T4 1.33 NG/dL 0. 78-2.19 (free thyroxine)) Thyrotropin [Units/volume] in Serum or [id number] 00:00:00 Test Item Value Reference Range Comments thyroid stimulating hormone (test code = thyroid 2.88 uIU/mL 0.47-4.68 stimulating hormone) Thyroperoxidase Ab [Units/volume] in [id number] 00:00:00 Test Item Value Reference Range Comments thyroid peroxidase (tpo) Ab (test code = thyroid < 0.25 <9.00 peroxidase (tpo) Ab) CBC W Auto Differential panel - [id number] 14:20:00 Test Item Value Reference Range Comments WBC (test code = WBC) 6.8 K/uL 4.1-10.9 lym% (test code = lym%) 36.6 % 10.0-58.5 lym# (test code = lym#) 2.5 % 0.6-4.1 mxd# (test code = mxd#) 0.4 % 0.0-1.8 mxd% (test code = mxd%) 5.2 % 0.1-24.0 gran (test code = gran) 4.0 % 2.0-7.8 gran% (test code = gran%) 58.2 % 37.0-92.0 RBC (test code = RBC) 4.73 M/uL 4.20-6.30 HGB (test code = HGB) 13.3 g/dL 14.1-18.1 HCT (test code = HCT) 42.4 % 34.5-53.7 MCV (test code = MCV) 89.7 fL 80.0-97.0 MCH (test code = MCH) 28.1 pg 26.0-32.0 MCHC (test code = MCHC) 31.4 g/dL 31.0-36.0 RDW (test code = RDW) 14.8 % 11.5-14.5 plt (test code = plt) 234 K/uL 140-440 MPV (test code = MPV) 7.6 fL 0.0-99.8 CBC W Auto Differential panel - [id number] 14:20:00 Test Item Value Reference Range Comments WBC (test code = WBC) 6.8 K/uL 4.1-10.9 lym% (test code = lym%) 36.6 % 10.0-58.5 lym# (test code = lym#) 2.5 % 0.6-4.1 mxd# (test code = mxd#) 0.4 % 0.0-1.8 mxd% (test code = mxd%) 5.2 % 0.1-24.0 gran (test code = gran) 4.0 % 2.0-7.8 gran% (test code = gran%) 58.2 % 37.0-92.0 RBC (test code = RBC) 4.73 M/uL 4.20-6.30 HGB (test code = HGB) 13.3 g/dL 14.1-18.1 HCT (test code = HCT) 42.4 % 34.5-53.7 MCV (test code = MCV) 89.7 fL 80.0-97.0 MCH (test code = MCH) 28.1 pg 26.0-32.0 MCHC (test code = MCHC) 31.4 g/dL 31.0-36.0 RDW (test code = RDW) 14.8 % 11.5-14.5 plt (test code = plt) 234 K/uL 140-440 MPV (test code = MPV) 7.6 fL 0.0-99.8 LIPID [id number] 09:03:00 Test Item Value Reference Range Comments TGL (test code = TGL) 154 MG/DL 30-200 HDL (test code = HDL) 50 MG/DL 32-96 CHOL (test code = CHOL) 195 MG/DL 140-200 CHD (test code = CHD) 25.64 DLDL (test code = DLDL) 124 MG/DL 100-130 [id number] 12:05:00 Test Item Value Reference Range Comments HA1C (test code = HA1C) 6.0 % 4.8-6.0 CBC W/DIFF 12:05:00 Test Item Value Reference Range Comments RBC (test code = RBC) 4.58 CU/MM 3.69-4.88 BA# (test code = BA#) 0.0 K/uL 0.0-0.1 HGB (test code = HGB) 13.9 G/DL 11.4-14.4 HCT (test code = HCT) 42.1 H % 33.3-41.4 MO% (test code = MO%) 7.0 % 4.6-12.4 LY% (test code = LY%) 27.6 % 16.8-43.5 MCH (test code = MCH) 30.4 PQ 26.8-33.2 MO# (test code = MO#) 0.5 # 0.3-0.8 NE% (test code = NE%) 59.6 % 43.3-71.9 WBC (test code = WBC) 7.7 K/UL 3.6-11.1 LY# (test code = LY#) 2.1 # 1.1-2.7 MCHC (test code = MCHC) 33.1 G/DL 33.5-35.5 RDW (test code = RDW) 13.3 % 12.0-15.1 EO% (test code = EO%) 5.5 % 0.0-7.8 PLT (test code = PLT) 193 K/UL 165-353 MCV (test code = MCV) 92 FL 79-95 EO# (test code = EO#) 0.4 K/uL 0.0-0.5 NE# (test code = NE#) 4.6 # 1.9-7.2 MPV (test code = MPV) 9.8 FL 7.5-10.7 BA% (test code = BA%) 0.3 % 0.0-1.1 [id number] [id number] 12:05:00 Test Item Value Reference Range Comments AST (test code = AST) 26 U/L 9-37 ALK PHOS (test code = ALK PHOS) 81 U/L 50-136 ALT (test code = ALT) 30 U/L 9-61 ION GAP (test code = ION GAP) 13 4-16 CO2 (test code = CO2) 25.6 MMOL/L 21.0-32.0 EGFRAA (test code = EGFRAA) 95.31 >60.00 GLU (test code = GLU) 92 MG/DL 70-110 NA (test code = NA) 140 MMOL/L 136-145 BUN/CREAT RATIO (test code = BUN/CREAT RATIO) 18 10 -14 CA (test code = CA) 9.1 MG/DL 8.5-10.1 ALB (test code = ALB) 3.7 G/DL 3.2-4.7 TP (test code = TP) 8.0 G/DL 6.9-8.5 K (test code = K) 4.4 MMOL/L 3.5-5.1 CL (test code = CL) 106 MMOL/L 98-110 EGFR (test code = EGFR) 78.64 >60.00 BUN (test code = BUN) 14 MG/DL 7-18 CR (test code = CR) 0.8 MG/DL 0.4-1.3 GLOB (test code = GLOB) 4.3 1.9-4.5 BILT (test code = BILT) 0.5 MG/DL 0.1-1.0 Assessments Condition Name Status Diagnosis Date Treating Clinici an Cough Active 2020-06-02 08:14:34 Generalized aches and pains 2020-06-02 08:52:28 Suspected COVID-19 2020-06-02 08:54:55 Administration of influenza vaccine 2020-06-02 0 9:01:12 Sprain of right wrist Active 2020-04-12 14:47:37 Accident while engaged in work-related Active 2020-03-07 4 11:44:47 activity Sprain of right wrist Active 2020-03-29 11:44:51 Pain of right wrist Active 2019-11-09 12:18:42 Sprain of wrist Active 2019-11-09 12:28:48 Adult health examination 2019-10-18 12:41:08 Immunization Active 2019-10-18 12:41:08 Screening for malignant neoplasm of Active 2019-10-18 1 2:41:08 breast Screening for malignant neoplasm of 2019-10-18 1 2:41:08 cervix Screening for malignant neoplasm of 2019-10-18 1 2:41:08 colon Screening for cardiovascular system 2019-10-18 1 2:41:08 disease Screening for mental disorders 2019-10-18 15:58: 45 Essential hypertension 2019-10-18 13:57:39 Cystitis Active 2019-08-30 11:50:33 Community acquired pneumonia 2019-08-09 15:18:41 Essential hypertension 2019-08-07 15:07:55 Hyperlipidemia Active 2019-08-07 15:07:57 Community acquired pneumonia 2019-08-07 16:26:01 Lumbar disc prolapse with radiculopathy Active 15:06:55 Spinal stenosis of lumbar region Active 2019-05-23 15:0 8:04 Degeneration of lumbar intervertebral Active 2019-05-23 15:08:09 disc Goiter Active 2019-05-09 16:10:06 Essential hypertension Active 2019-05-09 16:10:14 Cervical spondylosis with radiculopathy Active 16:10:20 Tendinitis of left elbow Active 2019-05-09 18:42:21 Spinal stenosis of lumbar region Active 2019-03-28 10:0 7:26 Lumbar disc prolapse with radiculopathy Active 10:07:27 Degeneration of lumbar intervertebral Active 2019-03-28 10:07:28 disc Low back pain Active 2019-03-28 10:07:32 Abdominal pain Active 2019-03-06 10:58:34 Jaw pain Active 2019-03-06 11:22:30 Influenza vaccination Active 2019-03-06 11:28:53 Hyperlipidemia Active 2019-01-16 09:40:56 Cervical spondylosis with radiculopathy Active 09:40:57 Body mass index 30+ - obesity Active 2019-01-16 10:08:1 7 Spinal stenosis of lumbar region Active 2018-12-27 11:4 3:46 Essential hypertension Active 2018-11-30 09:38:35 Hyperlipidemia Active 2018-11-30 10:05:32 Cervical spondylosis with radiculopathy Active 10:06:07 Pain of left shoulder joint Active 2018-11-30 10:09:34 Chronic pain syndrome Active 2018-10-17 09:39:09 Degeneration of lumbar intervertebral Active 2018-10-17 09:39:18 disc Lumbar radiculopathy Active 2018-10-17 09:39:18 Low back pain Active 2018-10-17 09:39:18 Prolapsed lumbar intervertebral disc Active 2018-10-17 09:39:18 with sciatica Medication monitoring Active 2018-10-17 09:39:30 Sacroiliac joint pain Active 2018-10-17 09:51:36 Adult health examination Active 2018-09-28 08:22:05 Immunization Active 2018-09-28 08:22:05 Screening for malignant neoplasm of Active 2018-09-28 0 8:22:05 breast Screening for malignant neoplasm of Active 2018-09-28 0 8:22:05 cervix Screening for malignant neoplasm of Active 2018-09-28 0 8:22:05 colon Screening for cardiovascular system Active 2018-09-28 0 8:22:05 disease Essential hypertension Active 2018-09-28 08:57:03 Spinal stenosis of lumbar region Active 2018-09-27 14:1 6:48 Lumbar disc prolapse with radiculopathy Active 14:16:49 Degeneration of lumbar intervertebral Active 2018-09-27 14:16:49 disc Low back pain Active 2018-09-27 14:16:51 Low back pain Active 2018-09-13 10:18:11 Degeneration of lumbar intervertebral Active 2018-09-13 22:50:56 disc Lumbar disc prolapse with radiculopathy Active 22:50:56 Spinal stenosis of lumbar region Active 2018-09-13 22:5 0:56 Bursitis of hip Active 2018-09-13 22:51:04 Essential hypertension Active 2018-08-29 16:15:40 Body mass index 30+ - obesity Active 2018-08-29 17:22:3 0 Essential hypertension Active 2018-08-09 14:03:58 Goiter Active 2018-08-09 14:04:06 Prediabetes Active 2018-08-09 14:08:08 Abnormal weight gain Active 2018-08-09 14:36:01 Varicose veins of lower extremity Active 2018-08-09 14: 40:58 Hypertension - Benign (Essential) Active Nausea Active Hypertension - Benign (Essential) Active Hyperglycemia Active Effusion of ankle and foot joint Active Hypertensive disorder Active Hypertensive disorder Active Encounters Start End Encounter Admission Attending Care Care Encounter Date/Time Date/Time Type Type Clinicians Facility Department ID 2020-06-02 2020-06-02 Outpatient [facility] [id number] 00:00:00 00:00:00 2020-06-02 2020-06-02 [facility] _2019 1 00:00:00 00:00:00 [place], 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 2020-04-12 2020-04-12 Jeannette Greenberg [facility] [id number] 00:00:00 00:00:00 [place] CLERK GUIDE: [facility] & [address] [place] [address], Ph. 2020-03-29 2020-03-29 Alicia [facility] [id number] 00:00:00 00:00:00 Manpreet, [facility]mediate [facility] Immediate & 024 POCKET MAKER: [address] [place] [address], Ph. 2019-11-09 2019-11-09 [facility] _2019 0 00:00:00 00:00:00 [place] [facility] [address] [place] [address], Ph. 2019-10-18 2019-10-18 [facility] _2019 0 00:00:00 00:00:00 [facility] 514 Jose Juan Schwartz MD: [address] [place] [address], Ph. 2019-08-30 2019-08-30 [facility] _2019 0 00:00:00 00:00:00 [facility] 326 Jose Juan Schwartz MD: [address] [place] [address], Ph. 2019-08-09 2019-08-09 [facility] _2019 0 00:00:00 00:00:00 [facility] 305 [facility] MD: [address] [place] [address], Ph. 2019-08-07 2019-08-07 [facility] Corporation _2019 0 00:00:00 00:00:00 Formerly [facility] 303 [facility] MD: [address] [place] [address], Ph. 2019-05-23 2019-05-23 Tiffanie Rivera [id number] 00:00:00 00:00:00 Galileo, Surgical Surgical 1218 MD: Darwin5 [facility], [address] [address], Ph. 2019-05-09 2019-05-09 [facility] _2018 1 00:00:00 00:00:00 [facility]ly [facility] 204 [facility] MD: [address] [place] [address], Ph. 2019-03-28 2019-03-28 Tiffanie Rivera [id number] 00:00:00 00:00:00 [facility] 1023 MD: 2145 [facility], [address], [place] [address], Ph. 2019-03-06 2019-03-06 [facility] _2018 1 00:00:00 00:00:00 Formerly [facility] 001 [facility] Medical MD: [address] [place] [address], Ph. 2019-01-16 2019-01-16 [facility] _2018 0 00:00:00 00:00:00 Formerly [facility] 813 [place], Medical Medical MD: 25 [facility] [place] [address], Ph. 2018-12-27 2018-12-27 Tiffanie Daltonereberto Rivera [id number] 00:00:00 00:00:00 Guirgues, Surgical Surgical 0724 MD: 2145 [facility] Formerly [facility], [address], [place] [address], Ph. 2018-11-30 2018-11-30 [facility] _2018 0 00:00:00 00:00:00 Formerly [facility] 627 [facility] Medical MD: 25 [facility], [place] [address], Ph. 2018-10-17 2018-10-17 Lew Rivera [id number] 00:00:00 00:00:00 MD Soila: Surgical Surgical 0514 5 [facility] [employer] Formerly [facility], [address], [place] [address], Ph. 2018-09-28 2018-09-28 [facility] 0 00:00:00 00:00:00 Formerly [facility] 425 [facility] Medical MD: 25 [facility] [place] [address], Ph. 2018-09-27 2018-09-27 Tiffanie Rivera [id number] 00:00:00 00:00:00 Guirgues, Surgical Surgical 0424 MD: 2145 [facility] Formerly [facility], [address], [place] [address], Ph. [phone] 2018-09-13 2018-09-13 Tiffanie Rivera [id number] 00:00:00 00:00:00 Guleida, Surgical Surgical 0410 MD: 2145 [facility] Formerly [facility], [address], [place] [address], Ph. 2018-08-29 2018-08-29 [facility] [id number] 00:00:00 00:00:00 [facility]: [address] [place] [address], Ph. 2018-08-09 2018-08-09 [facility] [id number] 0 00:00:00 00:00:00 [facility] [address] [place] [address], Ph. 2014-08-05 2014-08-05 Outpatient HA Richardson [id number] 08:45:00 08:45:00 [facility] [id number] D Health [id number] [place], C73 Inc. 2014-07-11 2014-07-11 Outpatient HA Richardson [id number] 11:15:00 11:15:00 [facility] [id number] E [facility] [id number] [place], 694 Inc. Immunizations Ordered Filled Immunization Date Status Comments Refus al Reason Immunization Name Name Influenza, 2019-03-06 Completed injectable, MDCK, 17:42:00 preservative free, quadrivalent influenza, 2019-03-06 Completed injectable, 00:00:00 quadrivalent influenza, 2017-04-05 Completed seasonal, 13:36:14 injectable influenza, 2016-04-21 Completed seasonal, 13:35:53 injectable influenza, 2016-03-06 Completed injectable, 00:00:00 quadrivalent influenza, 2015-05-08 Completed seasonal, 09:38:07 injectable Hep B, adult 2014-04-29 Completed 00:00:00 varicella 2014-02-19 Completed 00:00:00 Hep B, adult 2014-02-19 Completed 00:00:00 varicella 2014-01-09 Completed 00:00:00 Tdap 2014-01-09 Completed 00:00:00 Hep B, adult 2014-01-09 Completed 00:00:00 pneumococcal Unknown Completed conjugate PCV 13 zoster recombinant Unknown Completed Plan of Treatment Planned Activity Planned Date Details Comments Future Scheduled Test [code = ] Future Scheduled Test [code = ] Future Scheduled Test [code = ] Future Scheduled Test [code = ] Future Scheduled Test [code = ] Future Scheduled Test [code = ] Future Scheduled Test [code = ] Future Scheduled Test [code = ] Future Scheduled Test [code = ] Future Scheduled Test [code = ] Future Scheduled Test [code = ] Future Appointment 2020-07-03 00:00:00 Edwin Schwartz, [address]; , [place] [address] Social History Smoking Status Start Date Stop Date Former Smoker Vital Signs Vital Name Observation Time Observation Value Comments BP Diastolic 2020-06-02 00:00:00 76 mm[Hg] Height 2020-06-02 00:00:00 61 [in_i] BMI (Body Mass Index) 2020-06-02 00:00:00 32.3 kg/m2 BP Systolic 2020-06-02 00:00:00 121 mm[Hg] Body Weight 2020-06-02 00:00:00 171 [lb_av] BP Diastolic 2020-04-12 00:00:00 106 mm[Hg] Height 2020-04-12 00:00:00 61 [in_i] BMI (Body Mass Index) 2020-04-12 00:00:00 34 kg/m2 BP Systolic 2020-04-12 00:00:00 186 mm[Hg] Body Weight 2020-04-12 00:00:00 180 [lb_av] BP Diastolic 2020-03-29 00:00:00 105 mm[Hg] Height 2020-03-29 00:00:00 61 [in_i] BMI (Body Mass Index) 2020-03-29 00:00:00 33.7 kg/m2 BP Systolic 2020-03-29 00:00:00 173 mm[Hg] Body Weight 2020-03-29 00:00:00 178.6 [lb_av] BP Diastolic 2019-11-09 00:00:00 119 mm[Hg] Height 2019-11-09 00:00:00 61 [in_i] BMI (Body Mass Index) 2019-11-09 00:00:00 34 kg/m2 BP Systolic 2019-11-09 00:00:00 169 mm[Hg] Body Weight 2019-11-09 00:00:00 179.8 [lb_av] Height 2019-10-18 00:00:00 61 [in_i] Height 2019-08-30 00:00:00 61 [in_i] BP Diastolic 2019-08-09 00:00:00 89 mm[Hg] Height 2019-08-09 00:00:00 61 [in_i] BMI (Body Mass Index) 2019-08-09 00:00:00 34.2 kg/m2 BP Systolic 2019-08-09 00:00:00 165 mm[Hg] Body Weight 2019-08-09 00:00:00 181 [lb_av] BP Diastolic 2019-08-07 00:00:00 82 mm[Hg] Height 2019-08-07 00:00:00 61 [in_i] BMI (Body Mass Index) 2019-08-07 00:00:00 34.4 kg/m2 BP Systolic 2019-08-07 00:00:00 132 mm[Hg] Body Weight 2019-08-07 00:00:00 182 [lb_av] Height 2019-05-23 00:00:00 61 [in_i] BMI (Body Mass Index) 2019-05-23 00:00:00 35 kg/m2 Body Weight 2019-05-23 00:00:00 185 [lb_av] BP Diastolic 2019-05-09 00:00:00 84 mm[Hg] Height 2019-05-09 00:00:00 61 [in_i] BMI (Body Mass Index) 2019-05-09 00:00:00 36.1 kg/m2 BP Systolic 2019-05-09 00:00:00 154 mm[Hg] Body Weight 2019-05-09 00:00:00 191 [lb_av] BP Diastolic 2019-03-28 00:00:00 114 mm[Hg] Height 2019-03-28 00:00:00 61 [in_i] BMI (Body Mass Index) 2019-03-28 00:00:00 35 kg/m2 BP Systolic 2019-03-28 00:00:00 153 mm[Hg] Body Weight 2019-03-28 00:00:00 185 [lb_av] BP Diastolic 2019-03-06 00:00:00 79 mm[Hg] Height 2019-03-06 00:00:00 61 [in_i] BMI (Body Mass Index) 2019-03-06 00:00:00 35.3 kg/m2 BP Systolic 2019-03-06 00:00:00 124 mm[Hg] Body Weight 2019-03-06 00:00:00 187 [lb_av] BP Diastolic 2019-01-16 00:00:00 81 mm[Hg] Height 2019-01-16 00:00:00 61 [in_i] BMI (Body Mass Index) 2019-01-16 00:00:00 36.4 kg/m2 BP Systolic 2019-01-16 00:00:00 145 mm[Hg] Body Weight 2019-01-16 00:00:00 192.6 [lb_av] BP Diastolic 2018-12-27 00:00:00 89 mm[Hg] Height 2018-12-27 00:00:00 61 [in_i] BP Systolic 2018-12-27 00:00:00 148 mm[Hg] BP Diastolic 2018-11-30 00:00:00 67 mm[Hg] Height 2018-11-30 00:00:00 61 [in_i] BMI (Body Mass Index) 2018-11-30 00:00:00 35.4 kg/m2 BP Systolic 2018-11-30 00:00:00 114 mm[Hg] Body Weight 2018-11-30 00:00:00 187.6 [lb_av] BP Diastolic 2018-10-17 00:00:00 85 mm[Hg] Height 2018-10-17 00:00:00 61 [in_i] BMI (Body Mass Index) 2018-10-17 00:00:00 35 kg/m2 BP Systolic 2018-10-17 00:00:00 141 mm[Hg] Body Weight 2018-10-17 00:00:00 185 [lb_av] BP Diastolic 2018-09-28 00:00:00 77 mm[Hg] Height 2018-09-28 00:00:00 61 [in_i] BMI (Body Mass Index) 2018-09-28 00:00:00 35.5 kg/m2 BP Systolic 2018-09-28 00:00:00 137 mm[Hg] Body Weight 2018-09-28 00:00:00 187.8 [lb_av] BP Diastolic 2018-09-27 00:00:00 82 mm[Hg] Height 2018-09-27 00:00:00 61 [in_i] BMI (Body Mass Index) 2018-09-27 00:00:00 34.8 kg/m2 BP Systolic 2018-09-27 00:00:00 135 mm[Hg] Body Weight 2018-09-27 00:00:00 184 [lb_av] Height 2018-09-13 00:00:00 61 [in_i] BMI (Body Mass Index) 2018-09-13 00:00:00 34 kg/m2 Body Weight 2018-09-13 00:00:00 180 [lb_av] BP Diastolic 2018-08-29 00:00:00 102 mm[Hg] Height 2018-08-29 00:00:00 61 [in_i] BMI (Body Mass Index) 2018-08-29 00:00:00 34.8 kg/m2 BP Systolic 2018-08-29 00:00:00 146 mm[Hg] Body Weight 2018-08-29 00:00:00 184 [lb_av] BP Diastolic 2018-08-09 00:00:00 126 mm[Hg] Height 2018-08-09 00:00:00 61 [in_i] BMI (Body Mass Index) 2018-08-09 00:00:00 34.9 kg/m2 BP Systolic 2018-08-09 00:00:00 171 mm[Hg] Body Weight 2018-08-09 00:00:00 184.8 [lb_av] Hospital Discharge Instructions 1. Cough cough: care instructions XR, chest, 2 view CBC w/ auto diff 2. Generalized aches and pains rapid flu (A+B) muscle aches: care instructions viral infections: care instructions 3. Suspected COVID-19 zinc 50 mg tablet Vitamin D3 25 mcg (1,000 unit) tablet ascorbic acid (vitamin C) 1,000 mg tablet severe acute respiratory syndrome (sars): care instructions coronavirus (covid-19): care instructions 4. Administration of influenza vaccine influenza (flu) vaccine: care instructions Discussion Note Patient verbalized understanding and agreement with recommended care plan. All questions and concerns were addressed and answered adequately. Follow up visit will address htn, hld1. Accident while engaged in work-related activity 2. Sprain of right wrist pulse oximetry (PROC) physical therapy referral velcro wrist brace naproxen 500 mg tablet XR, wrist, 2 view wrist sprain: rehab exercises Discussion Note Face to face time spent with patient was 20 mins, with >50% of that time spent counseling the patient, discussing the risk and benefits of treatment and family education. Follow up with PCP in 1 week or sooner for new/worsening symptoms. All pt. questions and concerns were addressed and answered. Pt. verbalized understanding and agreement of treatment plan. This was an Urgent Care Visit. Quality measures managed by PCP. After performing a Medical Screening Examination, I estimate there is LOW risk for OPEN FRACTURE, COMPARTMENT SYNDROME, DEEP VENOUS THROMBOSIS, ACUTE TENDON RUPTURE, or NEUROVASCULAR INJURY thus I consider the discharge disposit ion reasonable. The patient and I have discussed the diagnosis and risks, and we agree with discharging home to closely follow-up with their primary doctor or the referral orthopedist with the understanding that symptoms and presentations can change. We also discussed returning to the Office immediately if new or worsening symptoms occur. We have discussed the symptoms which are most concerning (e.g., changing or worsening pain, numbness, weakness) that necessitate immediate return.1. Adult health examination well visit, women 50 to 65: care instructions 2. Immunization immunization: what you need to know pneumococcal polysaccharide vaccine: what you need to know i nfluenza (flu) vaccine (inactivated or recombinant): what you need to know td (tetanus, diphtheria) vaccine: what you need to know pneumococcal conjugate vaccine (pcv13): what you need to know live zoster (shingles) vaccine: what you need to know Shingrix (PF) 50 mcg/0.5 mL intramuscular suspension, kit Prevnar 13 (PF) 0.5 mL intramuscular syringe 3. Screening for malignant neoplasm of breast mammogram screening patient instructions learning about breast cancer screening MAMMO, screening, digital, bilateral 4. Screening for malignant neoplasm of cervix pelvic exam: care instructions 5. Screening for malignant neoplasm of colon colon cancer screening: care instructions colonoscopy referral 6. Screening for cardiovascular system disease A healthy heart: care instructions taking aspirin and other antiplatelets safely: care instructions reducing risk of another heart attack with medicine: care instructions 7. Screening for mental disorders learning about depression learning about anxiety disorders learning about benefits from quitting smoking 8. Essential hypertension hydrochlorothiazide 25 mg tablet Discussion Note Patient verbalized understanding and agreement with recommended care plan. All questions and concerns were addressed and answered adequately. Follow up visit will address htn, hld, thyroid problem1. Essential hypertension CMP, serum or plasma dash diet: care instructions low sodium diet (2,000 milligram): care instructions high blood pressure: care instructions 2. Hyperlipidemia high cholesterol: care instructions 3. Community acquired pneumonia CBC w/ auto diff rapid flu (A+B) rapid strep group A, throat XR, chest, 2 view pneumonia: care instructions amoxicillin 875 mg-potassium clavulanate 125 mg tablet benzonatate 200 mg capsule Discussion Note Patient verbalized understanding and agreement with recommended care plan. All questions and concerns were addressed and answered adequately. Follow up visit will address goiter, varicose vein, oa1. Lumbar disc prolapse with radiculopathy 2. Spinal stenosis of lumbar region 3. Degeneration of lumbar intervertebral disc Discussion Note At this point I recommend the patient continue with a home exercise program and I told her if symptoms worsen she will welcome to see her back. She is at maximummedical improvement. Patient educational handouts: No information available.1. Goiter goiter: care instructions TSH, serum or plasma T3, free, serum or plasma T4, free, serum 2. Essential hypertension hydrochlorothiazide 25 mg tablet lipid panel, blood 3. Cervical spondylosis with radiculopathy 4. Tendinitis of left elbow diclofenac 1 % topical gel tennis elbow strap tendon injury (tendinopathy): care instructions Discussion Note Patient verbalized understanding and agreement with recommended care plan. All questions and concerns were addressed and answered adequately. Follow up visit will address hld, htn1. Spinal stenosis of lumbar region 2. Lumbar disc prolapse with radiculopathy 3. Degeneration of lumbar intervertebral disc 4. Low back pain Discussion Note The patient is at maximum medical improvement has been reached at this point And I will order a functional capacity evaluation to determine permanent restrictions. The patient will follow-up after the functional capacity evaluation to review thefindings. Patient educational handouts: No information available.1. Abdominal pain CMP, serum or plasma CBC w/ auto diff CT, abdomen + pelvis, w/ contrast 2. Jaw pain electrocardiogram lipid panel, blood 3. Influenza vaccination Flucelvax Quad 2522-3797 (PF) 60 mcg (15 mcg x 4)/0.5 mL IM syringe Discussion Note Patient verbalized understanding and agreement with recommended care plan. All questions and concerns were addressed and answered adequately. Follow up visit will address htn, oa, goiter. Patient educational handouts: No informationavailable.1. Hyperlipidemia high cholesterol: care instructions 2. Cervical spondylosis with radiculopathy cervical spondylosis: care instructions neck pain: care instructions cervical disc disease: care instructions 3. Body mass index 30+ - obesity body mass index: care instructions learning about healthy weight Discussion Note Patient verbalized understanding and agreement with recommended care plan. All questions and concerns were addressed and answered adequately. Follow up visit will address htn, oa, goiter1. Spinal stenosis of lumbar region lumbar spinal stenosis: care instructions Discussion Note Wediscussed the long-term plan of hopefully getting her some relief and working with work conditioningto get her back to regular duty and if that is not possible to consider a functional capacity evaluation but that would not take place until she is had all the treatment including injections1. Essential hypertension losartan 25 mg tablet hydrochlorothiazide 25 mg tablet dash diet: care instructions low sodium diet (2,000 milligram): care instructions high blood pressure : care instructions 2. Hyperlipidemia high cholesterol: care instructions 3. Cervical spondylosis with radiculopathy XR, cervical spine cervical spondylosis: care instructions neck pain: care instructions cervical disc disease: care instructions 4. Pain of left shoulder joint XR, shoulder shoulder pain: care instructions Tylenol Arthritis Pain 650 mg tablet,extended release Discussion Note Patient verbalized understanding and agreement with recommended care plan. All questions and concerns were addressed and answered adequately. Follow up visit will address hld, cervical spondylosis 1. Low back pain XR, hip, unilateral, 2 or 3 view 2. Degeneration of lumbar intervertebral disc 3. Lumbar disc prolapse with radiculopathy 4. Spinal stenosis of lumbar region 5. Bursitis of hip Discussion Note I discussed with the patient the option of hip bursitis injection to help with the lateral hip pain. At this point will attempt to get it approved. I will see her back after her MRI and review the findings with her. Patient educational handouts: No information available.1. Essential hypertension high blood pressure: care instructions learning about high blood pressure CMP, serum or plasma CBC w/ auto diff lipid panel, blood Ecotrin Low [id number] mg tablet,enteric coated electrocardiogram 2. Goiter goiter: care instructions thyroid peroxidase (tpo) Ab, serum TSH, serum or plasma T4, free, serum US, thyroid T3, free, serum or plasma 3. Prediabetes HbA1c (hemoglobin A1c), blood prediabetes: care instructions 4. Abnormal weight gain abnormal weight gain: care instructions 5. Varicose veins of lower extremity varicose veins: care instructions Discussion Note Patient verbalized understanding and agreement with recommended care plan. All questions and concerns were addressed and answered adequately. Follow up visit will address htn
== END 2020-06-29 11:01 | disposition home or self-care (01) ==
LOC: ER 06:45
DX: M77.8 Other enthesopathies, not elsewhere classified (principal); M25.531 Pain in right wrist; M79.89 Other specified soft tissue disorders; M79.631 Pain in right forearm; G20 Parkinson's disease; I10 Essential (primary) hypertension
CPT/HCPCS: 99284; 96374; 96375; 73090; J2930; J1885